=== PATIENT | male | born 1950 | race Caucasian/White ===

== ENCOUNTER 2017-07-22 17:24 | Inpatient (IN) ==
[2017-07-22 19:01] LABS: Basophils # 0.1 10*3/uL (0.0-0.2); Basophils % 1.1 % (0.0-0.8); Eosinophils # 0.4 10*3/uL (0.0-0.87); Eosinophils % 3.8 % (0.00-10.9); Hematocrit 47.2 VOL% (42.0-52.0); Hemoglobin 15.3 GM/DL (14.0-18.0); Immature Granulocytes % 0.3 %; Immature Granulocytes Absolute 0.03 #; Lymphocytes # 1.8 10*3/uL (1.4-4.0); Mean Corpuscular HGB Conc 32.4 GM/DL (32-36); Mean Corpuscular Hemoglobin 29 PG (27-34); Mean Corpuscular Volume 90.8 FL (87-102); Mean Platelet Volume 9.8 FL (9.6-12.0); Monocytes # 0.6 10*3/uL (0.11-0.8); Monocytes % 6.9 % (1.7-12.7); Neutrophils # 6.4 10*3/uL (1.4-7.4); Neutrophils % 68.9 % (38.7-73.9); Platelet Count 268 T/CUMM (130-400); Red Cell Distribution Width 14.7 % (9.3-17.3); White Blood Count 9.3 T/CUMM (4-12)
[2017-07-22 19:10] LABS: PT Patient Result 10.3 SECS
[2017-07-22 19:19] LABS: Bilirubin,Total 0.5 MG/DL (0.2-1.0); Calcium 8.8 MG/DL (8.5-10.1); Osmolality,Calculated 286.8 MOS/KG (273-304); Potassium 4.4 MMOL/L (3.5-5.1); Total Protein 6.9 G/DL (6.4-8.3)
[2017-07-22 19:20] LABS: Troponin I Only < 0.015 NG/ML (0.00-0.045)
[2017-07-22] MEDS ORDERED: ONDANSETRON 4 MG/2 ML VIAL IV PRN (20:53)
[2017-07-22] MEDS ORDERED: ALBUTEROL/IPRATROPIUM 3 ML NEB RESP TX PRN (20:56)
[2017-07-22] MEDS: PANTOPRAZOLE 40 MG VIAL IV SCH (23:49)
[2017-07-22] MEDS: SODIUM CHLORIDE 0.9% 1,000 ML IV SCH (23:49)
[2017-07-23] MEDS ORDERED: CETIRIZINE 10 MG TABLET PO PRN (05:39)
[2017-07-23 05:43] LABS: Basophils # 0.1 10*3/uL (0.0-0.2); Basophils % 1.2 % (0.0-0.8); Eosinophils # 0.4 10*3/uL (0.0-0.87); Eosinophils % 5.2 % (0.00-10.9); Hematocrit 41.6 VOL% (42.0-52.0); Hemoglobin 13.6 GM/DL (14.0-18.0); Immature Granulocytes % 0.4 %; Immature Granulocytes Absolute 0.03 #; Lymphocytes # 2.1 10*3/uL (1.4-4.0); Lymphocytes % 29.5 % (21.2-54.2); Mean Corpuscular HGB Conc 32.7 GM/DL (32-36); Mean Corpuscular Hemoglobin 30 PG (27-34); Mean Corpuscular Volume 90.8 FL (87-102); Monocytes # 0.6 10*3/uL (0.11-0.8); Monocytes % 8.2 % (1.7-12.7); Neutrophils # 3.9 10*3/uL (1.4-7.4); Neutrophils % 55.5 % (38.7-73.9); Platelet Count 213 T/CUMM (130-400); Red Blood Count 4.58 MC/CUMM (3.8-5.5); Red Cell Distribution Width 14.8 % (9.3-17.3); White Blood Count 6.9 T/CUMM (4-12)
[2017-07-23 06:27] LABS: Calcium 8.7 MG/DL (8.5-10.1); Osmolality,Calculated 288.7 MOS/KG (273-304)
[2017-07-23] MEDS: COLCHICINE 0.6 MG TABLET PO SCH ×2 (08:48→13:41)
[2017-07-23] MEDS: THEOPHYLLINE ER (24 HR) 300 MG CAPSULE PO SCH ×2 (08:48→17:29)
[2017-07-23] MEDS: LOSARTAN 50 MG TABLET PO SCH ×2 (08:48→13:45)
[2017-07-23] MEDS: FEBUXOSTAT 80 MG TABLET PO SCH ×2 (08:49→13:44)
[2017-07-23] MEDS: MONTELUKAST 10 MG TABLET PO SCH ×2 (08:49→13:41)
[2017-07-23 08:50] LABS: Apearance,Urine Slightly Hazy (Clear); Bilirubin,Urine Negative (Negative); Blood, Urine Negative (Negative); Glucose,Urine (UA) Negative (Negative); Ketones,Urine 5 mg/dL (Negative); Mucus,Urine Many /LPF (Occasional); Nitrite,Urine Negative (Negative); Protein,Urine Negative; RBC,Urine <1 /HPF (0-4); Squamous Epithelial Cell,Urine Occasional /HPF (0-10); Urine Color Yellow (Yellow); Urine Specific Gravity 1.017 (1.001-1.035); Urine Urobilinogen < 2.0 EU/DL (0.2-1.0); WBC,Urine 3 /HPF (0-6)
[2017-07-23] MEDS ORDERED: CYANOCOBALAMIN 1000 MCG/1 ML VIAL IM SCH (09:00)
[2017-07-23] MEDS ORDERED: LIDOCAINE 2% 5 ML VIAL ONE (09:15)
[2017-07-23] MEDS ORDERED: PROPOFOL 200 MG/20 ML VIAL IV ONE (09:15)
[2017-07-23] MEDS: PANTOPRAZOLE 40 MG VIAL IV SCH ×2 (09:30→20:26)
[2017-07-23] MEDS: SODIUM CHLORIDE 0.9% 1,000 ML IV SCH (13:38)
[2017-07-23] MEDS ORDERED: SIMVASTATIN 40 MG TABLET PO SCH (21:00)
[2017-07-23] MEDS ORDERED: ALLOPURINOL 100 MG TABLET PO SCH (21:00)
[2017-07-23] MEDS ORDERED: CHOLECALCIFEROL 1,000 UNIT TABLET PO SCH (21:00)
[2017-07-23] MEDS ORDERED: ZALEPLON 5 MG CAPSULE PO SCH (21:00)
[2017-07-24] MEDS: SODIUM CHLORIDE 0.9% 1,000 ML IV SCH (06:43)
[2017-07-24] MEDS: MONTELUKAST 10 MG TABLET PO SCH (08:27)
[2017-07-24] MEDS: THEOPHYLLINE ER (24 HR) 300 MG CAPSULE PO SCH (08:27)
[2017-07-24] MEDS: FEBUXOSTAT 80 MG TABLET PO SCH (08:27)
[2017-07-24] MEDS: LOSARTAN 50 MG TABLET PO SCH (08:27)
[2017-07-24] MEDS: COLCHICINE 0.6 MG TABLET PO SCH (08:27)
[2017-07-24] MEDS: PANTOPRAZOLE 40 MG VIAL IV SCH (08:28)
[2017-07-24 09:36] VITALS: BP 114/68
== END 2017-07-24 10:54 | disposition home or self-care (01) | DRG 382 ==
LOC: N.ED 17:24 → N.EDINP 20:53 → N.5E 21:36
PROVIDERS: ADMIT Internal Medicine Geriatric Medicine; ATTEND Internal Medicine Geriatric Medicine

== ENCOUNTER 2020-02-25 14:56 | Inpatient (IN) ==
[2020-02-25] MEDS ORDERED: ALBUTEROL/IPRATROPIUM 3 ML NEB RESP TX STA (15:17)
[2020-02-25] MEDS ORDERED: SODIUM CHLORIDE 0.9% 500 ML IV STA (15:17)
[2020-02-25 15:43] LABS: Basophils # 0.1 10*3/uL (0.0-0.2); Basophils % 0.8 % (0.0-0.8); Eosinophils # 0.5 10*3/uL (0.0-0.87); Eosinophils % 4.7 % (0.00-10.9); Hematocrit 46.3 VOL% (42.0-52.0); Hemoglobin 15.1 GM/DL (14.0-18.0); Immature Granulocytes Absolute 0.11 #; Lymphocytes # 1.6 10*3/uL (1.4-4.0); Lymphocytes % 14.7 % (21.2-54.2); Mean Corpuscular HGB Conc 32.6 GM/DL (32-36); Mean Corpuscular Volume 84.2 FL (87-102); Monocytes % 6.1 % (1.7-12.7); Neutrophils % 72.7 % (38.7-73.9); Platelet Count 221 T/CUMM (130-400); Red Cell Distribution Width 14.6 % (9.3-17.3); White Blood Count 10.9 T/CUMM (4-12)
[2020-02-25 16:01] LABS: INR 1.1; PT Patient Result 12.2 SECS (9.8-11.9)
[2020-02-25 16:14] LABS: Albumin 2.9 G/DL (3.4-5.0); Bilirubin,Total 1.4 MG/DL (0.2-1.0); Calcium 8.8 MG/DL (8.5-10.1)
[2020-02-25] MEDS ORDERED: ZOLPIDEM 5 MG TABLET PO PRN (21:15)
[2020-02-25] MEDS ORDERED: ONDANSETRON 4 MG/2 ML VIAL IV PRN (21:15)
[2020-02-25] MEDS ORDERED: ACETAMINOPHEN 325 MG TABLET PO PRN (21:15)
[2020-02-25] MEDS ORDERED: DOCUSATE SODIUM 100 MG CAPSULE PO PRN (21:15)
[2020-02-25] MEDS ORDERED: ASPIRIN EC 81 MG TABLET PO SCH (21:30)
[2020-02-25] MEDS ORDERED: ALBUTEROL/IPRATROPIUM 3 ML NEB RESP TX PRN (23:29)
[2020-02-26] MEDS ORDERED: HEPARIN DRIP 25,000 UNITS/500 ML PREMIX IV SCH
[2020-02-26] MEDS: PANTOPRAZOLE 40 MG TABLET PO SCH ×3 (00:27→20:04)
[2020-02-26] MEDS: predniSONE 10 MG TABLET PO SCH ×3 (00:28→17:05)
[2020-02-26] MEDS: BUDESONIDE/FORMOTEROL 160-4.5 INHALER 6 GM INH SCH ×3 (00:29→20:09)
[2020-02-26] MEDS: ALBUTEROL 2.5 MG/3 ML NEB RESP TX SCH ×4 (00:59→19:31)
[2020-02-26] MEDS: SODIUM CHLORIDE 0.9% 1,000 ML IV SCH ×2 (01:00→18:29)
[2020-02-26 06:09] LABS: Basophils # 0.1 10*3/uL (0.0-0.2); Basophils % 0.6 % (0.0-0.8); Eosinophils # 0.2 10*3/uL (0.0-0.87); Eosinophils % 2.1 % (0.00-10.9); Hematocrit 43.6 VOL% (42.0-52.0); Hemoglobin 13.8 GM/DL (14.0-18.0); Immature Granulocytes % 0.8 %; Immature Granulocytes Absolute 0.09 #; Lymphocytes % 9.2 % (21.2-54.2); Mean Corpuscular HGB Conc 31.7 GM/DL (32-36); Mean Corpuscular Volume 86.2 FL (87-102); Mean Platelet Volume 10.5 FL (9.6-12.0); Monocytes % 4.3 % (1.7-12.7); Platelet Count 196 T/CUMM (130-400); Red Blood Count 5.06 MC/CUMM (3.8-5.5); Red Cell Distribution Width 14.9 % (9.3-17.3); White Blood Count 10.6 T/CUMM (4-12)
[2020-02-26 06:20] LABS: Calcium 8.8 MG/DL (8.5-10.1); Osmolality,Calculated 276.7 MOS/KG (273-304)
[2020-02-26] MEDS ORDERED: ROSUVASTATIN 20 MG TABLET PO SCH (09:00)
[2020-02-26] MEDS ORDERED: atenoloL 25 MG TABLET PO SCH (09:00)
[2020-02-26] MEDS ORDERED: allopurinoL 100 MG TABLET PO SCH (09:00)
[2020-02-26] MEDS ORDERED: CETIRIZINE 10 MG TABLET PO SCH (09:00)
[2020-02-26] MEDS ORDERED: ALBUTEROL 0.4 MG/ML 30 ML/BOTTLE PO SCH (09:00)
[2020-02-26] MEDS: THEOPHYLLINE ER 300 MG TABLET PO SCH ×2 (09:50→17:15)
[2020-02-26] MEDS: CHOLECALCIFEROL 1,000 UNIT TABLET PO SCH ×2 (09:50→20:04)
[2020-02-26] MEDS ORDERED: BISACODYL 5 MG TABLET PO PRN (10:15)
[2020-02-26 10:17] VITALS: BP 115/72
[2020-02-26 12:09] LABS: INR 1.2; PT Patient Result 12.5 SECS (9.8-11.9)
[2020-02-26 12:12] LABS: Partial Thromboplastin Time 168.5 SECS (23.9-33.8)
[2020-02-26] MEDS ORDERED: methylPREDNISolone SOD SUC 125 MG/2 ML VIAL IM ONE (12:34)
[2020-02-26] MEDS ORDERED: methylPREDNISolone SOD SUC 125 MG/2 ML VIAL IV ONE (12:34)
[2020-02-26] MEDS ORDERED: POTASSIUM CHLORIDE 20 MEQ TABLET PO ONE (19:13)
[2020-02-26 19:34] LABS: Allen Test Positive
[2020-02-26 19:35] LABS: ABG Base Excess -2.7 MMOL/L (-2.5-2.5); ABG HCO3 22.1 MMOL/L (20-26); ABG Oxygen Saturation 95.1 % (95-100); ABG PCO2 27.2 MM HG (35-48); ABG PH 7.467 (7.35-7.45); ABG PO2 73.5 MM HG (80-95); ABG TCO2 17.1 MMOL/L (23-27)
[2020-02-28] MEDS ORDERED: CYANOCOBALAMIN 1000 MCG/1 ML VIAL IM SCH (09:00)
== END 2020-02-26 21:02 | disposition hospice, home (50) | DRG 175 ==
LOC: EDBD → EDUNIT# → N.ED 14:56 → SUATTDRO 21:01 → N.EDINP 21:01 → N.ICU 02-26 09:58
PROVIDERS: ADMIT Internal Medicine; ATTEND Internal Medicine

== ENCOUNTER 2020-03-04 02:23 | Inpatient (IN) ==
[2020-03-04 02:42] LABS: Basophils # 0.1 10*3/uL (0.0-0.2); Basophils % 0.4 % (0.0-0.8); Eosinophils % 0.1 % (0.00-10.9); Hematocrit 40.1 VOL% (42.0-52.0); Hemoglobin 12.5 GM/DL (14.0-18.0); Immature Granulocytes % 5.1 %; Immature Granulocytes Absolute 0.96 #; Lymphocytes # 0.9 10*3/uL (1.4-4.0); Lymphocytes % 4.8 % (21.2-54.2); Mean Corpuscular HGB Conc 31.2 GM/DL (32-36); Mean Corpuscular Volume 86.8 FL (87-102); Mean Platelet Volume 9.6 FL (9.6-12.0); Monocytes % 5.7 % (1.7-12.7); NRBC # 0.05 10*3/uL; Neutrophils % 83.9 % (38.7-73.9); Platelet Count 265 T/CUMM (130-400); Red Blood Count 4.62 MC/CUMM (3.8-5.5); Red Cell Distribution Width 15.5 % (9.3-17.3); White Blood Count 18.7 T/CUMM (4-12)
[2020-03-04 02:52] LABS: INR 1.1; PT Patient Result 11.4 SECS (9.8-11.9); Partial Thromboplastin Time 25.6 SECS (23.9-33.8)
[2020-03-04] MEDS ORDERED: ONDANSETRON 4 MG/2 ML VIAL IV ONE ×2 (02:53→04:30)
[2020-03-04] MEDS ORDERED: PANTOPRAZOLE INJ 80 MG in SODIUM CHLORIDE 0.9% 100 ML IV ONE (02:53)
[2020-03-04] MEDS ORDERED: SODIUM CHLORIDE 0.9% 500 ML IV STA (02:53)
[2020-03-04] MEDS ORDERED: PANTOPRAZOLE 40 MG VIAL IV ONE ×2 (02:59→03:00)
[2020-03-04 03:00] LABS: Albumin 2.9 G/DL (3.4-5.0); Bilirubin,Total 3.3 MG/DL (0.2-1.0); Calcium 8.9 MG/DL (8.5-10.1); Osmolality,Calculated 280.5 MOS/KG (273-304); Total Protein 6.5 G/DL (6.4-8.3)
[2020-03-04 03:08] LABS: ABG Base Excess 0.3 MMOL/L (-2.5-2.5); ABG HCO3 23.4 MMOL/L (20-26); ABG Oxygen Saturation 99.3 % (95-100); ABG PCO2 32.6 MM HG (35-48); ABG PH 7.473 (7.35-7.45); ABG PO2 295.9 MM HG (80-95); ABG TCO2 24.4 MMOL/L (23-27); Allen Test Positive
[2020-03-04 03:18] LABS: Lymphocytes 8 % (20-55); Segmented Neutrophils 88 % (50-85); Total Cells Counted 100
[2020-03-04 03:20] LABS: Elliptocytes Few; Platelet Estimate Normal; Polychromasia Few
[2020-03-04] MEDS ORDERED: MORPHINE 4 MG/1 ML VIAL IV STA (04:30)
[2020-03-04] MEDS ORDERED: SODIUM CHLORIDE 0.9% 1,000 ML IV STA (04:47)
[2020-03-04] MEDS ORDERED: GLUCAGON 1 MG VIAL IM PRN (05:08)
[2020-03-04] MEDS ORDERED: PROMETHAZINE 25 MG/1 ML VIAL IM PRN (05:08)
[2020-03-04] MEDS ORDERED: NICOTINE 21 MG/24 HR PATCH TRANSDERM PRN (05:08)
[2020-03-04] MEDS ORDERED: MORPHINE 4 MG/1 ML VIAL IV PRN (05:08)
[2020-03-04] MEDS ORDERED: DEXTROSE 50% 25 GM/50 ML VIAL IV PRN (05:08)
[2020-03-04] MEDS ORDERED: hydrALAZINE 20 MG/1 ML VIAL IV PRN (05:08)
[2020-03-04] MEDS ORDERED: ONDANSETRON 4 MG/2 ML VIAL IV PRN (05:08)
[2020-03-04] MEDS ORDERED: metroNIDAZOLE INJ 500 MG in PREMIX 1 EACH IV STA (05:22)
[2020-03-04] MEDS ORDERED: LEVOFLOXACIN INJ 750 MG in PREMIX 1 EACH IV STA (05:22)
[2020-03-04] MEDS ORDERED: SODIUM CHLORIDE 0.9% 1,000 ML IV SCH (05:30)
[2020-03-04] MEDS ORDERED: metroNIDAZOLE 500 MG/100 ML PREMIX IV ONE (05:44)
[2020-03-04] MEDS: PANTOPRAZOLE INJ 200 MG in SODIUM CHLORIDE 0.9% 250 ML IV SCH (05:45)
[2020-03-04 06:00] LABS: Risk Ratio 2.34; VLDL CHOLESTEROL 36.6 MG/DL
[2020-03-04] MEDS ORDERED: METOPROLOL TARTRATE 5 MG/5 ML VIAL IV STA (06:07)
[2020-03-04] MEDS ORDERED: METOPROLOL TARTRATE 5 MG/5 ML VIAL IV ONE (06:08)
[2020-03-04 06:17] LABS: Basophils # 0.2 10*3/uL (0.0-0.2); Basophils % 0.5 % (0.0-0.8); Eosinophils % 0.1 % (0.00-10.9); Hematocrit 43.7 VOL% (42.0-52.0); Hemoglobin 13.4 GM/DL (14.0-18.0); Immature Granulocytes % 4.8 %; Immature Granulocytes Absolute 1.53 #; Lymphocytes # 1.6 10*3/uL (1.4-4.0); Lymphocytes % 5.1 % (21.2-54.2); Mean Corpuscular HGB Conc 30.7 GM/DL (32-36); Mean Corpuscular Volume 89.9 FL (87-102); Mean Platelet Volume 9.8 FL (9.6-12.0); Monocytes % 4.3 % (1.7-12.7); NRBC # 0.15 10*3/uL; Neutrophils % 85.2 % (38.7-73.9); Platelet Count 385 T/CUMM (130-400); Red Blood Count 4.86 MC/CUMM (3.8-5.5); Red Cell Distribution Width 15.5 % (9.3-17.3); White Blood Count 31.9 T/CUMM (4-12)
[2020-03-04 06:26] LABS: ABG Base Excess -2.1 MMOL/L (-2.5-2.5); ABG HCO3 22.2 MMOL/L (20-26); ABG Oxygen Saturation 78.8 % (95-100); ABG PCO2 42.4 MM HG (35-48); ABG PH 7.351 (7.35-7.45); ABG PO2 49.3 MM HG (80-95); ABG TCO2 20.8 MMOL/L (23-27)
[2020-03-04 06:36] LABS: Amorphous Crystals,Urine Occasional /HPF (Few); Apearance,Urine CLEAR (Clear); Bacteria,Urine Occasional /HPF (Few); Bilirubin,Urine Negative (Negative); Blood, Urine Small mg/dL (Negative); Glucose,Urine (UA) Negative (Negative); Hyaline Casts,Urine 3 /LPF (0-3); Ketones,Urine Negative (Negative); Mucus,Urine Many /LPF (Occasional); Nitrite,Urine Negative (Negative); Protein,Urine 100 MG/DL; RBC,Urine 1 /HPF (0-4); Squamous Epithelial Cell,Urine Occasional /HPF (0-10); Urine Color Yellow (Yellow); Urine Specific Gravity 1.018 (1.001-1.035); WBC,Urine 2 /HPF (0-6)
[2020-03-04 06:55] LABS: Hypochromasia 1+; Lymphocytes 5 % (20-55); Microcytosis 1+; Nucleated Red Blood Cells 1 (0-5); Segmented Neutrophils 92 % (50-85); Total Cells Counted 100
[2020-03-04 06:56] LABS: Ovalocytes Slight; Platelet Estimate Normal; Polychromasia Slight
[2020-03-04] MEDS: LACTATED RINGERS 1,000 ML IV SCH ×4 (09:42→22:27)
[2020-03-04] MEDS ORDERED: LACTATED RINGERS 1,000 ML IV ONE (12:27)
[2020-03-04 14:34] LABS: Calcium 7.9 MG/DL (8.5-10.1); Osmolality,Calculated 278.5 MOS/KG (273-304)
[2020-03-04] MEDS ORDERED: NOREPINEPHRINE 8 MG in SODIUM CHLORIDE 0.9% 242 ML IV PRN (15:00)
[2020-03-04 16:06] LABS: Alanine Aminotransferase 246 U/L (16-61); Albumin 1.9 G/DL (3.4-5.0); Alkaline Phosphatase 552 U/L (45-117); Aspartate Amino Transferase 523 U/L (0-37); Blood Urea Nitrogen 22 MG/DL (7-18); Calcium 7.8 MG/DL (8.5-10.1); Estimated Glom Filtration Rate 58 ML/MIN; Glucose 97 MG/DL (74-106); Osmolality,Calculated 283.3 MOS/KG (273-304); Total Protein 4.8 G/DL (6.4-8.3)
[2020-03-04] MEDS: metroNIDAZOLE INJ 500 MG in PREMIX 1 EACH IV SCH (17:50)
[2020-03-04] MEDS ORDERED: DOCUSATE SODIUM 100 MG CAPSULE PO PRN (18:01)
[2020-03-04] MEDS ORDERED: ZALEPLON 5 MG CAPSULE PO PRN (18:01)
[2020-03-04] MEDS ORDERED: LACTATED RINGERS 500 ML IV ONE (18:18)
[2020-03-04] MEDS: THEOPHYLLINE ER 300 MG TABLET PO SCH (19:09)
[2020-03-04] MEDS: CHOLECALCIFEROL 1,000 UNIT TABLET PO SCH (21:31)
[2020-03-04] MEDS: predniSONE 10 MG TABLET PO SCH (21:31)
[2020-03-04] MEDS: BUDESONIDE/FORMOTEROL 160-4.5 INHALER 6 GM INH SCH (21:31)
[2020-03-04] MEDS: APIXABAN 5 MG TABLET PO SCH (21:31)
[2020-03-04] MEDS: ALBUTEROL/IPRATROPIUM 3 ML NEB RESP TX SCH (21:32)
[2020-03-05] MEDS: metroNIDAZOLE INJ 500 MG in PREMIX 1 EACH IV SCH ×2 (04:33→17:08)
[2020-03-05 04:46] LABS: Basophils % 0.1 % (0.0-0.8); Eosinophils # 0.2 10*3/uL (0.0-0.87); Eosinophils % 1.1 % (0.00-10.9); Hematocrit 34.4 VOL% (42.0-52.0); Hemoglobin 10.4 GM/DL (14.0-18.0); Immature Granulocytes % 3.3 %; Immature Granulocytes Absolute 0.52 #; Lymphocytes # 0.9 10*3/uL (1.4-4.0); Lymphocytes % 5.8 % (21.2-54.2); Mean Corpuscular HGB Conc 30.2 GM/DL (32-36); Mean Corpuscular Volume 89.6 FL (87-102); Mean Platelet Volume 10.2 FL (9.6-12.0); Monocytes % 5.4 % (1.7-12.7); NRBC # 0.04 10*3/uL; Neutrophils % 84.3 % (38.7-73.9); Platelet Count 212 T/CUMM (130-400); Red Blood Count 3.84 MC/CUMM (3.8-5.5); Red Cell Distribution Width 15.6 % (9.3-17.3); White Blood Count 15.8 T/CUMM (4-12)
[2020-03-05 05:09] LABS: Albumin 2.3 G/DL (3.4-5.0); Bilirubin,Total 2.8 MG/DL (0.2-1.0); Calcium 8.4 MG/DL (8.5-10.1); Total Protein 4.7 G/DL (6.4-8.3)
[2020-03-05 05:28] LABS: Eosinophils 2 % (0-10); Lymphocytes 7 % (20-55); Segmented Neutrophils 86 % (50-85); Total Cells Counted 100
[2020-03-05 05:29] LABS: Anisocytosis 1+; Ovalocytes Few; Platelet Estimate Normal; Tear Drop Cells Few
[2020-03-05] MEDS ORDERED: LEVOFLOXACIN INJ 500 MG in PREMIX 1 EACH IV SCH (05:30)
[2020-03-05 05:47] LABS: Albumin 2.1 G/DL (3.4-5.0); Bilirubin,Direct 1.89 MG/DL (0.0-0.20); Bilirubin,Indirect 0.5 MG/DL (0.0-1.0); Bilirubin,Total 2.4 MG/DL (0.2-1.0); Total Protein 4.9 G/DL (6.4-8.3)
[2020-03-05] MEDS: ALBUTEROL/IPRATROPIUM 3 ML NEB RESP TX SCH ×4 (06:51→20:17)
[2020-03-05] MEDS: LACTATED RINGERS 1,000 ML IV SCH ×4 (07:15→20:41)
[2020-03-05] MEDS ORDERED: INDOMETHACIN SUPP 50 MG SUPP RECTAL ONE (07:31)
[2020-03-05] MEDS: APIXABAN 5 MG TABLET PO SCH ×2 (08:37→20:34)
[2020-03-05] MEDS: ursodioL 300 MG CAPSULE PO SCH ×2 (08:37→20:34)
[2020-03-05] MEDS: CHOLECALCIFEROL 1,000 UNIT TABLET PO SCH ×2 (08:37→20:34)
[2020-03-05] MEDS: THEOPHYLLINE ER 300 MG TABLET PO SCH ×2 (08:37→17:08)
[2020-03-05] MEDS: BUDESONIDE/FORMOTEROL 160-4.5 INHALER 6 GM INH SCH ×2 (08:37→20:36)
[2020-03-05] MEDS: ALBUTEROL 2 MG TABLET PO SCH (08:37)
[2020-03-05] MEDS ORDERED: METOPROLOL SUCCINATE XL 25 MG TABLET PO ONE (08:50)
[2020-03-05] MEDS ORDERED: AMIODARONE INJ 150 MG in DEXTROSE 5% 100 ML IV ONE (08:51)
[2020-03-05] MEDS ORDERED: AMIODARONE INJ 450 MG in DEXTROSE 5% 241 ML IV SCH (09:00)
[2020-03-05] MEDS: PANTOPRAZOLE INJ 200 MG in SODIUM CHLORIDE 0.9% 250 ML IV SCH (09:03)
[2020-03-05] MEDS ORDERED: METOPROLOL TARTRATE 5 MG/5 ML VIAL IV ONE (10:11)
[2020-03-05] MEDS ORDERED: SPIRONOLACTONE 25 MG TABLET PO ONE (10:59)
[2020-03-05 11:01] LABS: Troponin I < 0.015 NG/ML (0.00-0.045)
[2020-03-05] MEDS: predniSONE 10 MG TABLET PO SCH ×2 (12:30→20:34)
[2020-03-05] MEDS ORDERED: LEVOFLOXACIN 500 MG TABLET PO SCH (12:30)
[2020-03-05] MEDS: AMIODARONE INJ 450 MG in DEXTROSE 5% 241 ML IV SCH ×2 (15:30→21:57)
[2020-03-05] MEDS ORDERED: DOXYCYCLINE HYCLATE INJ 100 MG in SODIUM CHLORIDE 0.9% 100 ML IV SCH (20:00)
[2020-03-05] MEDS: PANTOPRAZOLE 40 MG VIAL IV SCH (20:34)
[2020-03-06] MEDS: metroNIDAZOLE INJ 500 MG in PREMIX 1 EACH IV SCH (05:39)
[2020-03-06 06:30] LABS: Basophils % 0.2 % (0.0-0.8); Hematocrit 29.2 VOL% (42.0-52.0); Hemoglobin 9.4 GM/DL (14.0-18.0); Immature Granulocytes Absolute 0.61 #; Lymphocytes # 0.6 10*3/uL (1.4-4.0); Lymphocytes % 4.5 % (21.2-54.2); Mean Corpuscular HGB Conc 32.2 GM/DL (32-36); Mean Corpuscular Volume 85.4 FL (87-102); Mean Platelet Volume 10.5 FL (9.6-12.0); Monocytes % 3.8 % (1.7-12.7); NRBC # 0.03 10*3/uL; Neutrophils % 86.5 % (38.7-73.9); Platelet Count 195 T/CUMM (130-400); Red Blood Count 3.42 MC/CUMM (3.8-5.5); Red Cell Distribution Width 15.5 % (9.3-17.3); White Blood Count 12.1 T/CUMM (4-12)
[2020-03-06] MEDS: LACTATED RINGERS 1,000 ML IV SCH ×2 (06:38→17:00)
[2020-03-06 06:53] LABS: Bilirubin,Total 1.1 MG/DL (0.2-1.0); Calcium 8.4 MG/DL (8.5-10.1)
[2020-03-06 06:54] LABS: Albumin 1.9 G/DL (3.4-5.0); Osmolality,Calculated 279.7 MOS/KG (273-304); Total Protein 4.9 G/DL (6.4-8.3)
[2020-03-06 06:55] LABS: Anisocytosis 2+; Band Neutrophils 2 % (0-10); Basophilic Stippling Slight; Lymphocytes 8 % (20-55); Metamyelocytes 1 %; Platelet Estimate Normal; Poikilocytosis Slight; Segmented Neutrophils 83 % (50-85); Total Cells Counted 100
[2020-03-06 06:56] LABS: Albumin 1.9 G/DL (3.4-5.0); Bilirubin,Direct 0.41 MG/DL (0.0-0.20); Bilirubin,Indirect 1.5 MG/DL (0.0-1.0); Bilirubin,Total 1.9 MG/DL (0.2-1.0); Total Protein 4.9 G/DL (6.4-8.3)
[2020-03-06] MEDS: ALBUTEROL/IPRATROPIUM 3 ML NEB RESP TX SCH ×4 (07:30→20:19)
[2020-03-06] MEDS: CHOLECALCIFEROL 1,000 UNIT TABLET PO SCH ×2 (08:04→20:40)
[2020-03-06] MEDS: THEOPHYLLINE ER 300 MG TABLET PO SCH (08:04)
[2020-03-06] MEDS: ursodioL 300 MG CAPSULE PO SCH ×2 (08:05→20:41)
[2020-03-06] MEDS: APIXABAN 5 MG TABLET PO SCH ×2 (08:05→20:40)
[2020-03-06] MEDS: predniSONE 10 MG TABLET PO SCH ×2 (08:05→20:41)
[2020-03-06] MEDS: BUDESONIDE/FORMOTEROL 160-4.5 INHALER 6 GM INH SCH ×2 (08:06→20:41)
[2020-03-06] MEDS: PANTOPRAZOLE 40 MG VIAL IV SCH ×2 (08:07→20:40)
[2020-03-06] MEDS: ALBUTEROL 2 MG TABLET PO SCH (08:10)
[2020-03-06] MEDS ORDERED: LEVOFLOXACIN 750 MG TABLET PO SCH (09:00)
[2020-03-06] MEDS ORDERED: METOPROLOL SUCCINATE XL 25 MG TABLET PO SCH (09:00)
[2020-03-06] MEDS: AMIODARONE INJ 450 MG in DEXTROSE 5% 241 ML IV SCH ×2 (13:12→23:05)
[2020-03-06] MEDS: ASCORBIC ACID 500 MG TABLET PO SCH (20:40)
[2020-03-06] MEDS: AMIODARONE 200 MG TABLET PO SCH (20:40)
[2020-03-07] MEDS: LACTATED RINGERS 1,000 ML IV SCH ×2 (03:04→14:49)
[2020-03-07 06:13] LABS: Basophils % 0.2 % (0.0-0.8); Hematocrit 32.5 VOL% (42.0-52.0); Hemoglobin 9.8 GM/DL (14.0-18.0); Immature Granulocytes % 2.8 %; Immature Granulocytes Absolute 0.39 #; Lymphocytes # 0.9 10*3/uL (1.4-4.0); Lymphocytes % 6.1 % (21.2-54.2); Mean Corpuscular HGB Conc 30.2 GM/DL (32-36); Mean Corpuscular Volume 88.8 FL (87-102); Mean Platelet Volume 10.2 FL (9.6-12.0); Monocytes % 4.1 % (1.7-12.7); NRBC # 0.02 10*3/uL; Neutrophils % 86.8 % (38.7-73.9); Platelet Count 226 T/CUMM (130-400); Red Blood Count 3.66 MC/CUMM (3.8-5.5); Red Cell Distribution Width 15.6 % (9.3-17.3)
[2020-03-07 06:31] LABS: Albumin 2.1 G/DL (3.4-5.0); Bilirubin,Total 0.7 MG/DL (0.2-1.0); Calcium 8.6 MG/DL (8.5-10.1); Osmolality,Calculated 279.3 MOS/KG (273-304); Total Protein 5.2 G/DL (6.4-8.3)
[2020-03-07] MEDS: ALBUTEROL/IPRATROPIUM 3 ML NEB RESP TX SCH ×4 (08:06→19:48)
[2020-03-07] MEDS: THEOPHYLLINE ER 300 MG TABLET PO SCH ×3 (09:06→17:08)
[2020-03-07] MEDS: ASCORBIC ACID 500 MG TABLET PO SCH ×2 (09:07→21:49)
[2020-03-07] MEDS: AMIODARONE 200 MG TABLET PO SCH ×2 (09:07→21:49)
[2020-03-07] MEDS: ALBUTEROL 2 MG TABLET PO SCH (09:07)
[2020-03-07] MEDS: CHOLECALCIFEROL 1,000 UNIT TABLET PO SCH ×2 (09:07→21:49)
[2020-03-07] MEDS: METOPROLOL SUCCINATE XL 25 MG TABLET PO SCH ×2 (09:08→21:49)
[2020-03-07] MEDS: predniSONE 10 MG TABLET PO SCH ×2 (09:08→21:49)
[2020-03-07] MEDS: APIXABAN 5 MG TABLET PO SCH ×2 (09:08→21:49)
[2020-03-07] MEDS: ursodioL 300 MG CAPSULE PO SCH ×2 (09:08→21:49)
[2020-03-07] MEDS: PANTOPRAZOLE 40 MG VIAL IV SCH ×2 (09:08→21:47)
[2020-03-07] MEDS: BUDESONIDE/FORMOTEROL 160-4.5 INHALER 6 GM INH SCH ×2 (09:08→21:49)
[2020-03-07] MEDS: ERTAPENEM 1,000 MG in SODIUM CHLORIDE 0.9% 100 ML IV SCH (09:15)
[2020-03-07] MEDS: MORPHINE 4 MG/1 ML VIAL IV PRN (21:47)
[2020-03-08] MEDS: MORPHINE 4 MG/1 ML VIAL IV PRN (00:50)
[2020-03-08] MEDS: LACTATED RINGERS 1,000 ML IV SCH ×2 (00:59→14:30)
[2020-03-08 06:21] LABS: Basophils % 0.2 % (0.0-0.8); Eosinophils % 0.1 % (0.00-10.9); Hematocrit 32.3 VOL% (42.0-52.0); Hemoglobin 10.4 GM/DL (14.0-18.0); Immature Granulocytes % 3.8 %; Immature Granulocytes Absolute 0.47 #; Lymphocytes # 0.7 10*3/uL (1.4-4.0); Lymphocytes % 5.9 % (21.2-54.2); Mean Corpuscular HGB Conc 32.2 GM/DL (32-36); Mean Corpuscular Volume 85.7 FL (87-102); Mean Platelet Volume 10.3 FL (9.6-12.0); Monocytes % 4.3 % (1.7-12.7); NRBC # 0.03 10*3/uL; Neutrophils % 85.7 % (38.7-73.9); Platelet Count 247 T/CUMM (130-400); Red Blood Count 3.77 MC/CUMM (3.8-5.5); White Blood Count 12.5 T/CUMM (4-12)
[2020-03-08 06:47] LABS: Calcium 8.7 MG/DL (8.5-10.1); Osmolality,Calculated 278.3 MOS/KG (273-304)
[2020-03-08] MEDS: ALBUTEROL/IPRATROPIUM 3 ML NEB RESP TX SCH ×4 (07:40→20:40)
[2020-03-08] MEDS: PANTOPRAZOLE 40 MG VIAL IV SCH ×2 (09:46→21:14)
[2020-03-08] MEDS: ASCORBIC ACID 500 MG TABLET PO SCH ×2 (09:47→21:13)
[2020-03-08] MEDS: predniSONE 10 MG TABLET PO SCH ×2 (09:47→21:13)
[2020-03-08] MEDS: ursodioL 300 MG CAPSULE PO SCH ×2 (09:47→21:13)
[2020-03-08] MEDS: ALBUTEROL 2 MG TABLET PO SCH (09:47)
[2020-03-08] MEDS: AMIODARONE 200 MG TABLET PO SCH ×2 (09:47→21:14)
[2020-03-08] MEDS: METOPROLOL SUCCINATE XL 25 MG TABLET PO SCH ×2 (09:47→21:13)
[2020-03-08] MEDS: CHOLECALCIFEROL 1,000 UNIT TABLET PO SCH ×2 (09:47→21:13)
[2020-03-08] MEDS: ERTAPENEM 1,000 MG in SODIUM CHLORIDE 0.9% 100 ML IV SCH (09:48)
[2020-03-08] MEDS: BUDESONIDE/FORMOTEROL 160-4.5 INHALER 6 GM INH SCH ×2 (09:48→21:20)
[2020-03-08] MEDS: APIXABAN 5 MG TABLET PO SCH ×2 (09:49→21:14)
[2020-03-08] MEDS: THEOPHYLLINE ER 300 MG TABLET PO SCH ×2 (09:52→16:46)
[2020-03-09] MEDS: LACTATED RINGERS 1,000 ML IV SCH ×4 (00:11→16:53)
[2020-03-09 05:46] LABS: Basophils % 0.2 % (0.0-0.8); Hematocrit 33.1 VOL% (42.0-52.0); Hemoglobin 10.4 GM/DL (14.0-18.0); Immature Granulocytes % 4.7 %; Immature Granulocytes Absolute 0.57 #; Lymphocytes # 0.8 10*3/uL (1.4-4.0); Lymphocytes % 6.4 % (21.2-54.2); Mean Corpuscular HGB Conc 31.4 GM/DL (32-36); Mean Corpuscular Volume 86.2 FL (87-102); Mean Platelet Volume 10.2 FL (9.6-12.0); Monocytes % 3.9 % (1.7-12.7); NRBC # 0.04 10*3/uL; Neutrophils % 84.8 % (38.7-73.9); Platelet Count 222 T/CUMM (130-400); Red Blood Count 3.84 MC/CUMM (3.8-5.5); Red Cell Distribution Width 16.3 % (9.3-17.3); White Blood Count 12.2 T/CUMM (4-12)
[2020-03-09 06:08] LABS: Hypochromasia 1+; Lymphocytes 6 % (20-55); Platelet Estimate Adequate; Segmented Neutrophils 88 % (50-85); Total Cells Counted 100
[2020-03-09 06:10] LABS: Albumin 2.4 G/DL (3.4-5.0); Bilirubin,Total 1.6 MG/DL (0.2-1.0); Calcium 8.7 MG/DL (8.5-10.1); Osmolality,Calculated 276.5 MOS/KG (273-304); Total Protein 5.5 G/DL (6.4-8.3)
[2020-03-09] MEDS: ALBUTEROL/IPRATROPIUM 3 ML NEB RESP TX SCH ×4 (07:18→19:16)
[2020-03-09] MEDS: PANTOPRAZOLE 40 MG VIAL IV SCH ×2 (08:40→21:17)
[2020-03-09] MEDS: ERTAPENEM 1,000 MG in SODIUM CHLORIDE 0.9% 100 ML IV SCH (08:40)
[2020-03-09] MEDS: BUDESONIDE/FORMOTEROL 160-4.5 INHALER 6 GM INH SCH ×2 (09:00→21:20)
[2020-03-09] MEDS ORDERED: LIDOCAINE 2% 5 ML VIAL ONE (09:00)
[2020-03-09] MEDS ORDERED: propofoL 200 MG/20 ML VIAL IV ONE (09:00)
[2020-03-09] MEDS: THEOPHYLLINE ER 300 MG TABLET PO SCH ×2 (12:57→16:56)
[2020-03-09] MEDS: AMIODARONE 200 MG TABLET PO SCH ×2 (13:30→21:17)
[2020-03-09] MEDS: ALBUTEROL 2 MG TABLET PO SCH (13:31)
[2020-03-09] MEDS: predniSONE 10 MG TABLET PO SCH ×2 (13:31→21:17)
[2020-03-09] MEDS: METOPROLOL SUCCINATE XL 25 MG TABLET PO SCH ×2 (13:31→21:16)
[2020-03-09] MEDS: ASCORBIC ACID 500 MG TABLET PO SCH ×2 (13:32→21:16)
[2020-03-09] MEDS: APIXABAN 5 MG TABLET PO SCH ×2 (13:32→21:17)
[2020-03-09] MEDS: ursodioL 300 MG CAPSULE PO SCH ×2 (13:32→21:17)
[2020-03-09] MEDS: CHOLECALCIFEROL 1,000 UNIT TABLET PO SCH ×2 (13:33→21:16)
[2020-03-10] MEDS: LACTATED RINGERS 1,000 ML IV SCH ×3 (04:25→16:36)
[2020-03-10 04:28] LABS: Basophils % 0.2 % (0.0-0.8); Hematocrit 34.5 VOL% (42.0-52.0); Hemoglobin 10.8 GM/DL (14.0-18.0); Immature Granulocytes Absolute 0.52 #; Lymphocytes # 0.7 10*3/uL (1.4-4.0); Lymphocytes % 5.7 % (21.2-54.2); Mean Corpuscular HGB Conc 31.3 GM/DL (32-36); Mean Corpuscular Volume 87.1 FL (87-102); Mean Platelet Volume 10.1 FL (9.6-12.0); Monocytes % 3.1 % (1.7-12.7); NRBC # 0.03 10*3/uL; Platelet Count 219 T/CUMM (130-400); Red Blood Count 3.96 MC/CUMM (3.8-5.5); Red Cell Distribution Width 17.2 % (9.3-17.3); White Blood Count 13.1 T/CUMM (4-12)
[2020-03-10 04:47] LABS: Calcium 8.3 MG/DL (8.5-10.1); Osmolality,Calculated 279.4 MOS/KG (273-304)
[2020-03-10 05:06] LABS: Band Neutrophils 1 % (0-10); Hypochromasia 1+; Lymphocytes 3 % (20-55); Macrocytosis Slight; Nucleated Red Blood Cells 1 (0-5); Platelet Estimate Adequate; Polychromasia Slight; Segmented Neutrophils 91 % (50-85); Total Cells Counted 100
[2020-03-10] MEDS: ALBUTEROL/IPRATROPIUM 3 ML NEB RESP TX SCH ×4 (07:30→19:50)
[2020-03-10] MEDS: ALBUTEROL 2 MG TABLET PO SCH (08:21)
[2020-03-10] MEDS: APIXABAN 5 MG TABLET PO SCH ×2 (08:21→21:34)
[2020-03-10] MEDS: predniSONE 10 MG TABLET PO SCH ×2 (08:21→21:34)
[2020-03-10] MEDS: THEOPHYLLINE ER 300 MG TABLET PO SCH ×2 (08:21→17:21)
[2020-03-10] MEDS: CHOLECALCIFEROL 1,000 UNIT TABLET PO SCH ×2 (08:21→21:36)
[2020-03-10 08:22] LABS: Albumin 2.4 G/DL (3.4-5.0); Bilirubin,Direct 0.35 MG/DL (0.0-0.20); Bilirubin,Indirect 0.4 MG/DL (0.0-1.0); Bilirubin,Total 0.7 MG/DL (0.2-1.0); Total Protein 5.2 G/DL (6.4-8.3)
[2020-03-10] MEDS: ASCORBIC ACID 500 MG TABLET PO SCH ×2 (08:22→21:35)
[2020-03-10] MEDS: PANTOPRAZOLE 40 MG VIAL IV SCH ×2 (08:22→21:40)
[2020-03-10] MEDS: AMIODARONE 200 MG TABLET PO SCH ×2 (08:22→21:34)
[2020-03-10] MEDS: ursodioL 300 MG CAPSULE PO SCH ×2 (08:22→21:36)
[2020-03-10] MEDS: ERTAPENEM 1,000 MG in SODIUM CHLORIDE 0.9% 100 ML IV SCH (08:25)
[2020-03-10] MEDS: METOPROLOL SUCCINATE XL 25 MG TABLET PO SCH ×2 (08:28→21:35)
[2020-03-10] MEDS: BUDESONIDE/FORMOTEROL 160-4.5 INHALER 6 GM INH SCH ×2 (08:28→21:41)
[2020-03-10] MEDS ORDERED: MICAFUNGIN 150 MG in SODIUM CHLORIDE 0.9% 100 ML IV SCH (13:45)
[2020-03-10] MEDS: MICAFUNGIN 50 MG, MICAFUNGIN 100 MG in SODIUM CHLORIDE 0.9% 100 ML IV SCH (14:04)
[2020-03-11] MEDS: LACTATED RINGERS 1,000 ML IV SCH ×4 (01:11→19:35)
[2020-03-11 05:21] LABS: Basophils % 0.2 % (0.0-0.8); Eosinophils % 0.1 % (0.00-10.9); Hematocrit 34.3 VOL% (42.0-52.0); Hemoglobin 10.7 GM/DL (14.0-18.0); Immature Granulocytes % 3.3 %; Immature Granulocytes Absolute 0.54 #; Lymphocytes # 0.7 10*3/uL (1.4-4.0); Lymphocytes % 3.9 % (21.2-54.2); Mean Corpuscular HGB Conc 31.2 GM/DL (32-36); Mean Corpuscular Volume 88.6 FL (87-102); Mean Platelet Volume 9.7 FL (9.6-12.0); Monocytes % 3.4 % (1.7-12.7); NRBC # 0.03 10*3/uL; Neutrophils % 89.1 % (38.7-73.9); Platelet Count 222 T/CUMM (130-400); Red Blood Count 3.87 MC/CUMM (3.8-5.5); Red Cell Distribution Width 17.2 % (9.3-17.3); White Blood Count 16.6 T/CUMM (4-12)
[2020-03-11 05:52] LABS: Albumin 2.4 G/DL (3.4-5.0); Bilirubin,Total 1.2 MG/DL (0.2-1.0); Calcium 8.3 MG/DL (8.5-10.1); Osmolality,Calculated 281.3 MOS/KG (273-304); Total Protein 5.2 G/DL (6.4-8.3)
[2020-03-11 06:33] LABS: Anisocytosis 1+; Lymphocytes 5 % (20-55); Segmented Neutrophils 93 % (50-85); Total Cells Counted 100
[2020-03-11 06:34] LABS: Platelet Estimate Normal
[2020-03-11] MEDS: ALBUTEROL/IPRATROPIUM 3 ML NEB RESP TX SCH ×4 (07:36→19:18)
[2020-03-11] MEDS: CHOLECALCIFEROL 1,000 UNIT TABLET PO SCH ×2 (08:31→21:04)
[2020-03-11] MEDS: THEOPHYLLINE ER 300 MG TABLET PO SCH ×2 (08:31→16:48)
[2020-03-11] MEDS: ALBUTEROL 2 MG TABLET PO SCH (08:31)
[2020-03-11] MEDS: METOPROLOL SUCCINATE XL 25 MG TABLET PO SCH ×2 (08:32→21:04)
[2020-03-11] MEDS: APIXABAN 5 MG TABLET PO SCH ×2 (08:32→21:06)
[2020-03-11] MEDS: ursodioL 300 MG CAPSULE PO SCH ×2 (08:32→21:05)
[2020-03-11] MEDS: predniSONE 10 MG TABLET PO SCH ×2 (08:32→21:04)
[2020-03-11] MEDS: BUDESONIDE/FORMOTEROL 160-4.5 INHALER 6 GM INH SCH ×2 (08:32→21:43)
[2020-03-11] MEDS: AMIODARONE 200 MG TABLET PO SCH ×2 (08:32→21:05)
[2020-03-11] MEDS: ASCORBIC ACID 500 MG TABLET PO SCH ×2 (08:32→21:06)
[2020-03-11] MEDS: PANTOPRAZOLE 40 MG VIAL IV SCH ×2 (08:33→21:07)
[2020-03-11] MEDS: ERTAPENEM 1,000 MG in SODIUM CHLORIDE 0.9% 100 ML IV SCH (09:45)
[2020-03-11] MEDS: MICAFUNGIN 50 MG, MICAFUNGIN 100 MG in SODIUM CHLORIDE 0.9% 100 ML IV SCH (14:11)
[2020-03-12] MEDS: LACTATED RINGERS 1,000 ML IV SCH ×2 (00:08→05:30)
[2020-03-12 06:06] LABS: Basophils % 0.2 % (0.0-0.8); Hematocrit 34.6 VOL% (42.0-52.0); Hemoglobin 10.8 GM/DL (14.0-18.0); Immature Granulocytes % 2.5 %; Immature Granulocytes Absolute 0.42 #; Lymphocytes # 0.9 10*3/uL (1.4-4.0); Mean Corpuscular HGB Conc 31.2 GM/DL (32-36); Mean Corpuscular Volume 89.9 FL (87-102); Mean Platelet Volume 9.7 FL (9.6-12.0); Monocytes % 2.9 % (1.7-12.7); NRBC # 0.02 10*3/uL; Neutrophils % 89.4 % (38.7-73.9); Platelet Count 248 T/CUMM (130-400); Red Blood Count 3.85 MC/CUMM (3.8-5.5); Red Cell Distribution Width 17.3 % (9.3-17.3); White Blood Count 17.1 T/CUMM (4-12)
[2020-03-12 06:23] LABS: Albumin 2.4 G/DL (3.4-5.0); Bilirubin,Total 0.8 MG/DL (0.2-1.0); Calcium 8.2 MG/DL (8.5-10.1); Osmolality,Calculated 279.4 MOS/KG (273-304); Total Protein 5.3 G/DL (6.4-8.3)
[2020-03-12] MEDS: ALBUTEROL/IPRATROPIUM 3 ML NEB RESP TX SCH ×4 (07:19→19:25)
[2020-03-12] MEDS: THEOPHYLLINE ER 300 MG TABLET PO SCH ×2 (09:09→17:01)
[2020-03-12] MEDS: predniSONE 10 MG TABLET PO SCH ×2 (09:09→21:28)
[2020-03-12] MEDS: ursodioL 300 MG CAPSULE PO SCH ×2 (09:09→21:27)
[2020-03-12] MEDS: METOPROLOL SUCCINATE XL 25 MG TABLET PO SCH ×2 (09:09→21:29)
[2020-03-12] MEDS: PANTOPRAZOLE 40 MG VIAL IV SCH ×2 (09:09→21:32)
[2020-03-12] MEDS: ASCORBIC ACID 500 MG TABLET PO SCH ×2 (09:10→21:28)
[2020-03-12] MEDS: ALBUTEROL 2 MG TABLET PO SCH (09:10)
[2020-03-12] MEDS: ERTAPENEM 1,000 MG in SODIUM CHLORIDE 0.9% 100 ML IV SCH (09:11)
[2020-03-12] MEDS: APIXABAN 5 MG TABLET PO SCH ×2 (09:13→21:30)
[2020-03-12] MEDS: CHOLECALCIFEROL 1,000 UNIT TABLET PO SCH ×2 (09:13→21:27)
[2020-03-12] MEDS: AMIODARONE 200 MG TABLET PO SCH ×2 (09:14→21:27)
[2020-03-12] MEDS: BUDESONIDE/FORMOTEROL 160-4.5 INHALER 6 GM INH SCH ×2 (10:27→21:30)
[2020-03-12] MEDS: MICAFUNGIN 50 MG, MICAFUNGIN 100 MG in SODIUM CHLORIDE 0.9% 100 ML IV SCH (14:11)
[2020-03-13 06:32] LABS: Basophils % 0.2 % (0.0-0.8); Eosinophils % 0.1 % (0.00-10.9); Hematocrit 39.6 VOL% (42.0-52.0); Hemoglobin 12.1 GM/DL (14.0-18.0); Immature Granulocytes % 1.9 %; Immature Granulocytes Absolute 0.32 #; Lymphocytes # 0.8 10*3/uL (1.4-4.0); Lymphocytes % 4.6 % (21.2-54.2); Mean Corpuscular HGB Conc 30.6 GM/DL (32-36); Mean Corpuscular Volume 89.4 FL (87-102); Mean Platelet Volume 9.6 FL (9.6-12.0); Monocytes % 2.5 % (1.7-12.7); NRBC # 0.04 10*3/uL; Neutrophils % 90.7 % (38.7-73.9); Platelet Count 277 T/CUMM (130-400); Red Blood Count 4.43 MC/CUMM (3.8-5.5); Red Cell Distribution Width 17.5 % (9.3-17.3)
[2020-03-13 06:52] LABS: Albumin 2.8 G/DL (3.4-5.0); Bilirubin,Total 0.9 MG/DL (0.2-1.0); Calcium 8.5 MG/DL (8.5-10.1); Osmolality,Calculated 283.5 MOS/KG (273-304); Total Protein 5.8 G/DL (6.4-8.3)
[2020-03-13] MEDS ORDERED: FUROSEMIDE 40 MG/4 ML VIAL IV ONE (07:15)
[2020-03-13 07:16] LABS: Hypochromasia Slight; Lymphocytes 6 % (20-55); Ovalocytes Slight; Platelet Estimate Adequate; Segmented Neutrophils 91 % (50-85); Total Cells Counted 100
[2020-03-13] MEDS: ALBUTEROL/IPRATROPIUM 3 ML NEB RESP TX SCH ×3 (07:21→15:20)
[2020-03-13] MEDS: ERTAPENEM 1,000 MG in SODIUM CHLORIDE 0.9% 100 ML IV SCH (09:53)
[2020-03-13] MEDS: PANTOPRAZOLE 40 MG VIAL IV SCH ×2 (09:53→20:59)
[2020-03-13] MEDS: CHOLECALCIFEROL 1,000 UNIT TABLET PO SCH ×2 (09:54→20:58)
[2020-03-13] MEDS: predniSONE 10 MG TABLET PO SCH ×2 (09:54→20:58)
[2020-03-13] MEDS: APIXABAN 5 MG TABLET PO SCH ×2 (09:54→20:58)
[2020-03-13] MEDS: ASCORBIC ACID 500 MG TABLET PO SCH ×2 (09:54→20:58)
[2020-03-13] MEDS: AMIODARONE 200 MG TABLET PO SCH ×2 (09:54→20:58)
[2020-03-13] MEDS: METOPROLOL SUCCINATE XL 25 MG TABLET PO SCH ×2 (09:55→21:02)
[2020-03-13] MEDS: ursodioL 300 MG CAPSULE PO SCH ×2 (09:55→20:58)
[2020-03-13] MEDS: THEOPHYLLINE ER 300 MG TABLET PO SCH ×2 (09:55→16:19)
[2020-03-13] MEDS: ALBUTEROL 2 MG TABLET PO SCH (10:00)
[2020-03-13] MEDS: BUDESONIDE/FORMOTEROL 160-4.5 INHALER 6 GM INH SCH ×2 (10:00→20:54)
[2020-03-13] MEDS: MICAFUNGIN 50 MG, MICAFUNGIN 100 MG in SODIUM CHLORIDE 0.9% 100 ML IV SCH (12:51)
[2020-03-14 05:18] LABS: Basophils % 0.1 % (0.0-0.8); Eosinophils % 0.1 % (0.00-10.9); Hematocrit 38.9 VOL% (42.0-52.0); Hemoglobin 12.3 GM/DL (14.0-18.0); Immature Granulocytes % 1.2 %; Immature Granulocytes Absolute 0.17 #; Lymphocytes # 0.9 10*3/uL (1.4-4.0); Lymphocytes % 6.2 % (21.2-54.2); Mean Corpuscular HGB Conc 31.6 GM/DL (32-36); Mean Corpuscular Volume 86.4 FL (87-102); Mean Platelet Volume 9.6 FL (9.6-12.0); Monocytes % 3.5 % (1.7-12.7); NRBC # 0.02 10*3/uL; Neutrophils % 88.9 % (38.7-73.9); Platelet Count 247 T/CUMM (130-400); Red Cell Distribution Width 17.6 % (9.3-17.3); White Blood Count 14.3 T/CUMM (4-12)
[2020-03-14 05:52] LABS: Calcium 9.2 MG/DL (8.5-10.1); Osmolality,Calculated 274.8 MOS/KG (273-304)
[2020-03-14 07:53] VITALS: BP 105/63
[2020-03-14] MEDS: ERTAPENEM 1,000 MG in SODIUM CHLORIDE 0.9% 100 ML IV SCH (10:07)
[2020-03-14] MEDS: PANTOPRAZOLE 40 MG VIAL IV SCH (10:07)
[2020-03-14] MEDS: THEOPHYLLINE ER 300 MG TABLET PO SCH (10:08)
[2020-03-14] MEDS: BUDESONIDE/FORMOTEROL 160-4.5 INHALER 6 GM INH SCH (10:08)
[2020-03-14] MEDS: APIXABAN 5 MG TABLET PO SCH (10:08)
[2020-03-14] MEDS: AMIODARONE 200 MG TABLET PO SCH (10:09)
[2020-03-14] MEDS: predniSONE 10 MG TABLET PO SCH (10:09)
[2020-03-14] MEDS: METOPROLOL SUCCINATE XL 25 MG TABLET PO SCH (10:09)
[2020-03-14] MEDS: CHOLECALCIFEROL 1,000 UNIT TABLET PO SCH (10:09)
[2020-03-14] MEDS: ursodioL 300 MG CAPSULE PO SCH (10:09)
[2020-03-14] MEDS: ASCORBIC ACID 500 MG TABLET PO SCH (10:09)
[2020-03-14] MEDS: ALBUTEROL 2 MG TABLET PO SCH (10:14)
[2020-03-14] MEDS: MICAFUNGIN 50 MG, MICAFUNGIN 100 MG in SODIUM CHLORIDE 0.9% 100 ML IV SCH (11:22)
[2020-03-15] MEDS ORDERED: AMIODARONE 200 MG TABLET PO SCH (09:00)
== END 2020-03-14 14:07 | disposition home health service (06) | DRG 871 ==
LOC: EDUNIT# → EDBD → N.ED 02:23 → SUATTDRO 05:08 → N.EDINP 05:08 → N.ICU 06:14 → N.TELEN 03-05 16:28
PROVIDERS: ADMIT Internal Medicine; ATTEND Internal Medicine

== ENCOUNTER 2020-03-19 19:22 | Inpatient (IN) ==
[2020-03-19 20:09] LABS: Basophils % 0.2 % (0.0-0.8); Eosinophils % 0.4 % (0.00-10.9); Hematocrit 39.6 VOL% (42.0-52.0); Hemoglobin 12.3 GM/DL (14.0-18.0); Immature Granulocytes % 0.8 %; Immature Granulocytes Absolute 0.08 #; Lymphocytes # 0.5 10*3/uL (1.4-4.0); Lymphocytes % 4.8 % (21.2-54.2); Mean Corpuscular HGB Conc 31.1 GM/DL (32-36); Mean Corpuscular Volume 90.2 FL (87-102); Mean Platelet Volume 9.6 FL (9.6-12.0); Monocytes % 4.9 % (1.7-12.7); Neutrophils % 88.9 % (38.7-73.9); Platelet Count 217 T/CUMM (130-400); Red Blood Count 4.39 MC/CUMM (3.8-5.5); Red Cell Distribution Width 17.9 % (9.3-17.3)
[2020-03-19 20:18] LABS: INR 1.1
[2020-03-19 20:36] LABS: Albumin 3.4 G/DL (3.4-5.0); Anisocytosis Slight; Bilirubin,Total 1.6 MG/DL (0.2-1.0); Calcium 9.2 MG/DL (8.5-10.1); Ferritin 219.5 ng/ml (26-388); Lymphocytes 5 % (20-55); Osmolality,Calculated 275.8 MOS/KG (273-304); Segmented Neutrophils 90 % (50-85); Total Cells Counted 100; Total Protein 6.1 G/DL (6.4-8.3)
[2020-03-19 20:37] LABS: Elliptocytes Few; Hypochromasia Slight; Platelet Estimate Adequate
[2020-03-19 20:43] LABS: Apearance,Urine Slightly Hazy (Clear); Bacteria,Urine Occasional /HPF (Few); Bilirubin,Urine Negative (Negative); Blood, Urine Negative (Negative); Glucose,Urine (UA) Negative (Negative); Ketones,Urine 5 mg/dL (Negative); Mucus,Urine Many /LPF (Occasional); Nitrite,Urine Negative (Negative); Protein,Urine 30 MG/DL; RBC,Urine 2 /HPF (0-4); Urine Color Yellow (Yellow); Urine Urobilinogen < 2.0 EU/DL (0.2-1.0); WBC,Urine 5 /HPF (0-6)
[2020-03-20] MEDS ORDERED: ACETAMINOPHEN 325 MG TABLET PO PRN (00:58)
[2020-03-20] MEDS ORDERED: ONDANSETRON 4 MG/2 ML VIAL IV PRN (00:58)
[2020-03-20 06:19] LABS: Bilirubin,Total 2.1 MG/DL (0.2-1.0); Calcium 8.6 MG/DL (8.5-10.1); Osmolality,Calculated 277.5 MOS/KG (273-304); Total Protein 5.7 G/DL (6.4-8.3)
[2020-03-20] MEDS ORDERED: ERTAPENEM 1,000 MG in SODIUM CHLORIDE 0.9% 100 ML IV SCH (09:00)
[2020-03-20] MEDS: MICAFUNGIN 100 MG, MICAFUNGIN 50 MG in SODIUM CHLORIDE 0.9% 100 ML IV SCH (10:42)
[2020-03-21] MEDS ORDERED: ALBUTEROL/IPRATROPIUM 3 ML NEB RESP TX PRN (01:37)
[2020-03-21 05:35] LABS: Basophils % 0.3 % (0.0-0.8); Eosinophils # 0.7 10*3/uL (0.0-0.87); Eosinophils % 7.5 % (0.00-10.9); Hematocrit 38.5 VOL% (42.0-52.0); Hemoglobin 12.2 GM/DL (14.0-18.0); Immature Granulocytes % 0.7 %; Immature Granulocytes Absolute 0.06 #; Lymphocytes # 0.5 10*3/uL (1.4-4.0); Lymphocytes % 5.2 % (21.2-54.2); Mean Corpuscular HGB Conc 31.7 GM/DL (32-36); Mean Corpuscular Volume 89.7 FL (87-102); Mean Platelet Volume 9.8 FL (9.6-12.0); Monocytes % 5.5 % (1.7-12.7); Neutrophils % 80.8 % (38.7-73.9); Platelet Count 176 T/CUMM (130-400); Red Blood Count 4.29 MC/CUMM (3.8-5.5); Red Cell Distribution Width 17.7 % (9.3-17.3); White Blood Count 8.7 T/CUMM (4-12)
[2020-03-21 05:59] LABS: Eosinophils 11 % (0-10); Hypochromasia 1+; Lymphocytes 4 % (20-55); Platelet Estimate Adequate; Segmented Neutrophils 81 % (50-85); Total Cells Counted 100
[2020-03-21 06:09] LABS: Bilirubin,Total 1.6 MG/DL (0.2-1.0); Calcium 8.9 MG/DL (8.5-10.1); Osmolality,Calculated 278.3 MOS/KG (273-304); Total Protein 5.9 G/DL (6.4-8.3)
[2020-03-21] MEDS: MICAFUNGIN 100 MG, MICAFUNGIN 50 MG in SODIUM CHLORIDE 0.9% 100 ML IV SCH (09:48)
[2020-03-21] MEDS: METOPROLOL SUCCINATE XL 25 MG TABLET PO SCH (09:48)
[2020-03-21] MEDS: allopurinoL 100 MG TABLET PO SCH (09:48)
[2020-03-21] MEDS: AMIODARONE 200 MG TABLET PO SCH ×2 (09:48→22:17)
[2020-03-21] MEDS: ursodioL 300 MG CAPSULE PO SCH ×2 (09:48→22:16)
[2020-03-21] MEDS: BUDESONIDE/FORMOTEROL 160-4.5 INHALER 6 GM INH SCH ×2 (09:48→22:17)
[2020-03-21] MEDS: APIXABAN 5 MG TABLET PO SCH ×2 (09:48→22:17)
[2020-03-21] MEDS: CETIRIZINE 10 MG TABLET PO SCH (09:49)
[2020-03-21] MEDS: ASCORBIC ACID 500 MG TABLET PO SCH ×2 (09:49→22:16)
[2020-03-21] MEDS: DOCUSATE SODIUM 100 MG CAPSULE PO PRN (09:49)
[2020-03-21] MEDS: CHOLECALCIFEROL 1,000 UNIT TABLET PO SCH ×2 (09:49→22:16)
[2020-03-21] MEDS: THEOPHYLLINE ER 300 MG TABLET PO SCH ×2 (09:49→17:20)
[2020-03-21] MEDS: MEMANTINE 5 MG TABLET PO SCH (22:17)
[2020-03-21] MEDS: QUEtiapine 25 MG TABLET PO SCH (22:17)
[2020-03-22 06:31] LABS: Basophils % 0.3 % (0.0-0.8); Eosinophils # 0.6 10*3/uL (0.0-0.87); Eosinophils % 8.7 % (0.00-10.9); Hematocrit 36.2 VOL% (42.0-52.0); Hemoglobin 11.2 GM/DL (14.0-18.0); Immature Granulocytes % 0.5 %; Immature Granulocytes Absolute 0.04 #; Lymphocytes # 0.6 10*3/uL (1.4-4.0); Lymphocytes % 8.1 % (21.2-54.2); Mean Corpuscular HGB Conc 30.9 GM/DL (32-36); Mean Corpuscular Volume 89.8 FL (87-102); Mean Platelet Volume 9.4 FL (9.6-12.0); Monocytes % 6.2 % (1.7-12.7); Neutrophils % 76.2 % (38.7-73.9); Platelet Count 188 T/CUMM (130-400); Red Blood Count 4.03 MC/CUMM (3.8-5.5); Red Cell Distribution Width 17.4 % (9.3-17.3); White Blood Count 7.4 T/CUMM (4-12)
[2020-03-22 07:00] LABS: Calcium 8.4 MG/DL (8.5-10.1); Osmolality,Calculated 283.1 MOS/KG (273-304)
[2020-03-22] MEDS: APIXABAN 5 MG TABLET PO SCH ×2 (09:30→21:18)
[2020-03-22] MEDS: CHOLECALCIFEROL 1,000 UNIT TABLET PO SCH ×2 (09:30→21:19)
[2020-03-22] MEDS: ASCORBIC ACID 500 MG TABLET PO SCH ×2 (09:30→21:18)
[2020-03-22] MEDS: MEMANTINE 5 MG TABLET PO SCH ×2 (09:30→21:19)
[2020-03-22] MEDS: DOCUSATE SODIUM 100 MG CAPSULE PO PRN (09:31)
[2020-03-22] MEDS: BUDESONIDE/FORMOTEROL 160-4.5 INHALER 6 GM INH SCH ×2 (09:31→21:18)
[2020-03-22] MEDS: CETIRIZINE 10 MG TABLET PO SCH (09:31)
[2020-03-22] MEDS: allopurinoL 100 MG TABLET PO SCH (09:31)
[2020-03-22] MEDS: THEOPHYLLINE ER 300 MG TABLET PO SCH ×2 (09:31→17:23)
[2020-03-22] MEDS: METOPROLOL SUCCINATE XL 25 MG TABLET PO SCH (09:31)
[2020-03-22] MEDS: AMIODARONE 200 MG TABLET PO SCH ×2 (09:31→21:19)
[2020-03-22] MEDS: ursodioL 300 MG CAPSULE PO SCH ×2 (09:31→21:18)
[2020-03-22] MEDS: MICAFUNGIN 100 MG, MICAFUNGIN 50 MG in SODIUM CHLORIDE 0.9% 100 ML IV SCH (10:12)
[2020-03-22] MEDS ORDERED: POTASSIUM CHLORIDE 20 MEQ TABLET PO ONE (11:27)
[2020-03-22] MEDS ORDERED: traZODone 50 MG TABLET PO PRN (15:17)
[2020-03-22] MEDS: QUEtiapine 25 MG TABLET PO SCH (21:19)
[2020-03-23 06:18] LABS: Basophils % 0.5 % (0.0-0.8); Eosinophils # 0.7 10*3/uL (0.0-0.87); Eosinophils % 8.9 % (0.00-10.9); Hematocrit 36.9 VOL% (42.0-52.0); Hemoglobin 11.8 GM/DL (14.0-18.0); Immature Granulocytes % 0.7 %; Immature Granulocytes Absolute 0.05 #; Lymphocytes # 0.8 10*3/uL (1.4-4.0); Lymphocytes % 10.7 % (21.2-54.2); Mean Corpuscular Volume 88.7 FL (87-102); Mean Platelet Volume 9.7 FL (9.6-12.0); Monocytes % 6.1 % (1.7-12.7); Neutrophils % 73.1 % (38.7-73.9); Platelet Count 191 T/CUMM (130-400); Red Blood Count 4.16 MC/CUMM (3.8-5.5); Red Cell Distribution Width 17.5 % (9.3-17.3); White Blood Count 7.6 T/CUMM (4-12)
[2020-03-23 06:35] LABS: Calcium 8.4 MG/DL (8.5-10.1); Osmolality,Calculated 277.5 MOS/KG (273-304)
[2020-03-23] MEDS: THEOPHYLLINE ER 300 MG TABLET PO SCH ×2 (07:56→16:01)
[2020-03-23] MEDS: ursodioL 300 MG CAPSULE PO SCH ×2 (09:01→21:04)
[2020-03-23] MEDS: METOPROLOL SUCCINATE XL 25 MG TABLET PO SCH (09:01)
[2020-03-23] MEDS: APIXABAN 5 MG TABLET PO SCH ×2 (09:01→21:04)
[2020-03-23] MEDS: DOCUSATE SODIUM 100 MG CAPSULE PO PRN (09:01)
[2020-03-23] MEDS: ASCORBIC ACID 500 MG TABLET PO SCH ×2 (09:01→21:05)
[2020-03-23] MEDS: CHOLECALCIFEROL 1,000 UNIT TABLET PO SCH ×2 (09:02→21:05)
[2020-03-23] MEDS: MICAFUNGIN 100 MG, MICAFUNGIN 50 MG in SODIUM CHLORIDE 0.9% 100 ML IV SCH (09:02)
[2020-03-23] MEDS: CETIRIZINE 10 MG TABLET PO SCH (09:02)
[2020-03-23] MEDS: AMIODARONE 200 MG TABLET PO SCH ×2 (09:02→21:05)
[2020-03-23] MEDS: allopurinoL 100 MG TABLET PO SCH (09:02)
[2020-03-23] MEDS: MEMANTINE 5 MG TABLET PO SCH ×2 (09:02→21:04)
[2020-03-23] MEDS: BUDESONIDE/FORMOTEROL 160-4.5 INHALER 6 GM INH SCH ×2 (09:04→21:05)
[2020-03-23] MEDS: QUEtiapine 25 MG TABLET PO SCH (21:05)
[2020-03-24 06:07] LABS: Basophils % 0.4 % (0.0-0.8); Eosinophils # 0.7 10*3/uL (0.0-0.87); Hematocrit 39.1 VOL% (42.0-52.0); Hemoglobin 12.4 GM/DL (14.0-18.0); Immature Granulocytes % 0.5 %; Immature Granulocytes Absolute 0.05 #; Lymphocytes # 0.9 10*3/uL (1.4-4.0); Lymphocytes % 9.6 % (21.2-54.2); Mean Corpuscular HGB Conc 31.7 GM/DL (32-36); Mean Corpuscular Volume 87.3 FL (87-102); Mean Platelet Volume 9.4 FL (9.6-12.0); Monocytes % 6.3 % (1.7-12.7); Neutrophils % 76.2 % (38.7-73.9); Platelet Count 233 T/CUMM (130-400); Red Blood Count 4.48 MC/CUMM (3.8-5.5); White Blood Count 9.7 T/CUMM (4-12)
[2020-03-24 07:51] VITALS: BP 118/77
[2020-03-24 07:57] LABS: Calcium 9.1 MG/DL (8.5-10.1); Osmolality,Calculated 275.7 MOS/KG (273-304)
[2020-03-24] MEDS: CETIRIZINE 10 MG TABLET PO SCH (08:24)
[2020-03-24] MEDS: CHOLECALCIFEROL 1,000 UNIT TABLET PO SCH (08:24)
[2020-03-24] MEDS: ASCORBIC ACID 500 MG TABLET PO SCH (08:24)
[2020-03-24] MEDS: ursodioL 300 MG CAPSULE PO SCH (08:24)
[2020-03-24] MEDS: METOPROLOL SUCCINATE XL 25 MG TABLET PO SCH (08:24)
[2020-03-24] MEDS: THEOPHYLLINE ER 300 MG TABLET PO SCH (08:25)
[2020-03-24] MEDS: MEMANTINE 5 MG TABLET PO SCH (08:25)
[2020-03-24] MEDS: AMIODARONE 200 MG TABLET PO SCH (08:25)
[2020-03-24] MEDS: allopurinoL 100 MG TABLET PO SCH (08:25)
[2020-03-24] MEDS: APIXABAN 5 MG TABLET PO SCH (08:25)
[2020-03-24] MEDS: BUDESONIDE/FORMOTEROL 160-4.5 INHALER 6 GM INH SCH (08:28)
== END 2020-03-24 10:15 | DRG 884 ==
LOC: EDUNIT# → EDBD → N.EDINP 19:22 → N.ED 19:22 → N.3E 22:48
PROVIDERS: ADMIT Internal Medicine; ATTEND Internal Medicine

== ENCOUNTER 2020-04-06 09:09 | Inpatient (IN) ==
[2020-04-06] MEDS ORDERED: PROMETHAZINE 25 MG/1 ML VIAL ONE (09:51)
[2020-04-06] MEDS ORDERED: PROMETHAZINE 25 MG/1 ML VIAL IM STA (10:00)
[2020-04-06] MEDS: DEXTROSE 5% NACL 0.45% 1,000 ML IV SCH ×2 (11:00→21:57)
[2020-04-06] MEDS ORDERED: hydrALAZINE 20 MG/1 ML VIAL IV PRN (11:05)
[2020-04-06] MEDS ORDERED: PROMETHAZINE 25 MG/1 ML VIAL IM PRN (11:05)
[2020-04-06] MEDS ORDERED: ACETAMINOPHEN 325 MG TABLET PO PRN (11:05)
[2020-04-06] MEDS ORDERED: DOCUSATE SODIUM 100 MG CAPSULE PO PRN (11:05)
[2020-04-06] MEDS ORDERED: NITROGLYCERIN SL 0.4 MG TABLET SL PRN (14:35)
[2020-04-06] MEDS: ASPIRIN EC 81 MG TABLET PO SCH (14:52)
[2020-04-06 16:13] LABS: Troponin I < 0.015 NG/ML (0.00-0.045)
[2020-04-06 17:57] LABS: Troponin I < 0.015 NG/ML (0.00-0.045)
[2020-04-06] MEDS: THEOPHYLLINE ER 300 MG TABLET PO SCH (17:57)
[2020-04-06] MEDS: ursodioL 300 MG CAPSULE PO SCH (21:56)
[2020-04-06] MEDS: AMIODARONE 200 MG TABLET PO SCH (21:56)
[2020-04-06] MEDS: QUEtiapine 25 MG TABLET PO SCH (21:56)
[2020-04-06] MEDS: CHOLECALCIFEROL 1,000 UNIT TABLET PO SCH (21:56)
[2020-04-06] MEDS: MEMANTINE 5 MG TABLET PO SCH (21:56)
[2020-04-06] MEDS: ASCORBIC ACID 500 MG TABLET PO SCH (21:56)
[2020-04-06] MEDS: BUDESONIDE/FORMOTEROL 160-4.5 INHALER 6 GM INH SCH (21:57)
[2020-04-07 05:03] LABS: Basophils # 0.1 10*3/uL (0.0-0.2); Basophils % 0.6 % (0.0-0.8); Eosinophils # 0.2 10*3/uL (0.0-0.87); Eosinophils % 1.8 % (0.00-10.9); Hemoglobin 12.3 GM/DL (14.0-18.0); Immature Granulocytes % 1.4 %; Immature Granulocytes Absolute 0.12 #; Lymphocytes # 0.7 10*3/uL (1.4-4.0); Lymphocytes % 8.9 % (21.2-54.2); Mean Corpuscular HGB Conc 31.5 GM/DL (32-36); Mean Corpuscular Volume 87.8 FL (87-102); Mean Platelet Volume 9.3 FL (9.6-12.0); Monocytes % 6.6 % (1.7-12.7); Neutrophils % 80.7 % (38.7-73.9); Platelet Count 251 T/CUMM (130-400); Red Blood Count 4.44 MC/CUMM (3.8-5.5); White Blood Count 8.3 T/CUMM (4-12)
[2020-04-07 05:28] LABS: Calcium 8.2 MG/DL (8.5-10.1)
[2020-04-07] MEDS: ASCORBIC ACID 500 MG TABLET PO SCH ×2 (10:36→20:12)
[2020-04-07] MEDS: CETIRIZINE 10 MG TABLET PO SCH (10:36)
[2020-04-07] MEDS: ursodioL 300 MG CAPSULE PO SCH ×2 (10:36→20:12)
[2020-04-07] MEDS: METOPROLOL SUCCINATE XL 25 MG TABLET PO SCH (10:37)
[2020-04-07] MEDS: allopurinoL 100 MG TABLET PO SCH (10:37)
[2020-04-07] MEDS: AMIODARONE 200 MG TABLET PO SCH ×2 (10:37→20:12)
[2020-04-07] MEDS: ASPIRIN EC 81 MG TABLET PO SCH (10:37)
[2020-04-07] MEDS: THEOPHYLLINE ER 300 MG TABLET PO SCH ×2 (10:37→17:01)
[2020-04-07] MEDS: ALBUTEROL 0.4 MG/ML 30 ML/BOTTLE PO SCH (10:38)
[2020-04-07] MEDS: BUDESONIDE/FORMOTEROL 160-4.5 INHALER 6 GM INH SCH ×2 (10:38→20:11)
[2020-04-07] MEDS: MEMANTINE 5 MG TABLET PO SCH ×2 (10:38→20:56)
[2020-04-07] MEDS: CHOLECALCIFEROL 1,000 UNIT TABLET PO SCH ×2 (17:01→20:12)
[2020-04-07] MEDS: ENOXAPARIN 80 MG/0.8 ML SYRINGE SUBCUT SCH (17:01)
[2020-04-07] MEDS: DEXTROSE 5% NACL 0.45% 1,000 ML IV SCH (18:14)
[2020-04-07 18:22] LABS: Apearance,Urine CLEAR (Clear); Bilirubin,Urine Negative (Negative); Blood, Urine Negative (Negative); Glucose,Urine (UA) Negative (Negative); Ketones,Urine Negative (Negative); Nitrite,Urine Negative (Negative); Protein,Urine Negative; RBC,Urine 3 /HPF (0-4); Urine Color Yellow (Yellow); Urine Specific Gravity 1.006 (1.001-1.035); Urine Urobilinogen < 2.0 EU/DL (0.2-1.0); WBC,Urine 3 /HPF (0-6)
[2020-04-07] MEDS: QUEtiapine 25 MG TABLET PO SCH (20:12)
[2020-04-07] MEDS: ONDANSETRON 4 MG/2 ML VIAL IV PRN (20:17)
[2020-04-07] MEDS: PANTOPRAZOLE 40 MG VIAL IV SCH (22:59)
[2020-04-07 23:02] LABS: Hematocrit 37.8 VOL% (42.0-52.0); Hemoglobin 12.1 GM/DL (14.0-18.0)
[2020-04-08] MEDS: ENOXAPARIN 80 MG/0.8 ML SYRINGE SUBCUT SCH ×3 (01:34→23:23)
[2020-04-08 02:40] LABS: Hematocrit 36.2 VOL% (42.0-52.0); Hemoglobin 11.5 GM/DL (14.0-18.0)
[2020-04-08 05:54] LABS: Basophils # 0.1 10*3/uL (0.0-0.2); Basophils % 0.8 % (0.0-0.8); Eosinophils # 0.2 10*3/uL (0.0-0.87); Eosinophils % 1.6 % (0.00-10.9); Hematocrit 35.5 VOL% (42.0-52.0); Hemoglobin 11.3 GM/DL (14.0-18.0); Immature Granulocytes % 1.5 %; Immature Granulocytes Absolute 0.15 #; Lymphocytes % 9.6 % (21.2-54.2); Mean Corpuscular HGB Conc 31.8 GM/DL (32-36); Mean Corpuscular Volume 89.2 FL (87-102); Mean Platelet Volume 9.6 FL (9.6-12.0); Monocytes % 6.5 % (1.7-12.7); Platelet Count 266 T/CUMM (130-400); Red Blood Count 3.98 MC/CUMM (3.8-5.5); Red Cell Distribution Width 16.9 % (9.3-17.3); White Blood Count 9.9 T/CUMM (4-12)
[2020-04-08 06:09] LABS: Calcium 8.3 MG/DL (8.5-10.1); Osmolality,Calculated 270.8 MOS/KG (273-304)
[2020-04-08 06:10] LABS: Osmolality,Calculated 272.7 MOS/KG (273-304)
[2020-04-08 07:31] LABS: Hematocrit 36.1 VOL% (42.0-52.0); Hemoglobin 11.5 GM/DL (14.0-18.0)
[2020-04-08] MEDS ORDERED: MAGNESIUM SULF RIDER 2 GM in PREMIX 1 EACH IV ONE (07:51)
[2020-04-08] MEDS ORDERED: predniSONE 10 MG TABLET PO SCH (09:00)
[2020-04-08] MEDS: DEXTROSE 5% NACL 0.45% 1,000 ML IV SCH (09:06)
[2020-04-08] MEDS: PANTOPRAZOLE 40 MG VIAL IV SCH ×2 (09:06→21:03)
[2020-04-08] MEDS: BUDESONIDE/FORMOTEROL 160-4.5 INHALER 6 GM INH SCH ×2 (09:06→21:03)
[2020-04-08] MEDS: THEOPHYLLINE ER 300 MG TABLET PO SCH ×2 (09:07→16:35)
[2020-04-08] MEDS: ASPIRIN EC 81 MG TABLET PO SCH (09:08)
[2020-04-08] MEDS: CETIRIZINE 10 MG TABLET PO SCH (09:08)
[2020-04-08] MEDS: MEMANTINE 5 MG TABLET PO SCH ×2 (09:08→21:03)
[2020-04-08] MEDS: CHOLECALCIFEROL 1,000 UNIT TABLET PO SCH ×2 (09:08→21:03)
[2020-04-08] MEDS: allopurinoL 100 MG TABLET PO SCH (09:08)
[2020-04-08] MEDS: ASCORBIC ACID 500 MG TABLET PO SCH ×2 (09:08→21:03)
[2020-04-08] MEDS: ursodioL 300 MG CAPSULE PO SCH ×2 (09:08→21:03)
[2020-04-08] MEDS: AMIODARONE 200 MG TABLET PO SCH ×2 (09:09→21:03)
[2020-04-08] MEDS: METOPROLOL SUCCINATE XL 25 MG TABLET PO SCH (09:09)
[2020-04-08] MEDS: ALBUTEROL 0.4 MG/ML 30 ML/BOTTLE PO SCH (09:11)
[2020-04-08] MEDS ORDERED: POTASSIUM CHLORIDE 20 MEQ TABLET PO ONE ×2 (10:17→10:34)
[2020-04-08] MEDS: ONDANSETRON 4 MG/2 ML VIAL IV PRN (13:27)
[2020-04-08] MEDS: QUEtiapine 25 MG TABLET PO SCH (21:03)
[2020-04-09 06:11] LABS: Basophils % 0.5 % (0.0-0.8); Eosinophils % 0.4 % (0.00-10.9); Hematocrit 33.6 VOL% (42.0-52.0); Hemoglobin 10.7 GM/DL (14.0-18.0); Immature Granulocytes % 1.9 %; Immature Granulocytes Absolute 0.14 #; Lymphocytes # 0.9 10*3/uL (1.4-4.0); Lymphocytes % 12.4 % (21.2-54.2); Mean Corpuscular HGB Conc 31.8 GM/DL (32-36); Mean Platelet Volume 9.9 FL (9.6-12.0); Monocytes % 5.9 % (1.7-12.7); Neutrophils % 78.9 % (38.7-73.9); Platelet Count 233 T/CUMM (130-400); Red Blood Count 3.82 MC/CUMM (3.8-5.5); Red Cell Distribution Width 16.9 % (9.3-17.3); White Blood Count 7.3 T/CUMM (4-12)
[2020-04-09 06:31] LABS: Osmolality,Calculated 274.5 MOS/KG (273-304)
[2020-04-09 06:31] LABS: Calcium 8.4 MG/DL (8.5-10.1); Osmolality,Calculated 272.7 MOS/KG (273-304)
[2020-04-09] MEDS: THEOPHYLLINE ER 300 MG TABLET PO SCH (10:06)
[2020-04-09] MEDS: ASPIRIN EC 81 MG TABLET PO SCH (10:06)
[2020-04-09] MEDS: AMIODARONE 200 MG TABLET PO SCH (10:06)
[2020-04-09] MEDS: METOPROLOL SUCCINATE XL 25 MG TABLET PO SCH (10:07)
[2020-04-09] MEDS: ursodioL 300 MG CAPSULE PO SCH (10:07)
[2020-04-09] MEDS: allopurinoL 100 MG TABLET PO SCH (10:07)
[2020-04-09] MEDS: CETIRIZINE 10 MG TABLET PO SCH (10:07)
[2020-04-09] MEDS: CHOLECALCIFEROL 1,000 UNIT TABLET PO SCH (10:07)
[2020-04-09] MEDS: ASCORBIC ACID 500 MG TABLET PO SCH (10:07)
[2020-04-09] MEDS: MEMANTINE 5 MG TABLET PO SCH (10:07)
[2020-04-09] MEDS: PANTOPRAZOLE 40 MG VIAL IV SCH (10:08)
[2020-04-09] MEDS: ALBUTEROL 0.4 MG/ML 30 ML/BOTTLE PO SCH (10:13)
[2020-04-09] MEDS: BUDESONIDE/FORMOTEROL 160-4.5 INHALER 6 GM INH SCH (10:13)
[2020-04-09 12:20] VITALS: BP 100/63
== END 2020-04-09 12:26 | disposition home health service (06) | DRG 392 ==
LOC: EDUNIT# → EDBD → N.ED 09:09 → SUATTDRO 09:37 → INTOOBSV 09:37 → N.EDINP 09:37 → N.3E 15:38
PROVIDERS: ADMIT Family Medicine; ATTEND Hospitalist

== ENCOUNTER 2020-04-12 15:58 | Observation (INO) ==
[2020-04-12] MEDS ORDERED: PANTOPRAZOLE INJ 80 MG in SODIUM CHLORIDE 0.9% 100 ML IV STA (16:06)
[2020-04-12] MEDS ORDERED: ONDANSETRON 4 MG/2 ML VIAL IV STA (16:06)
[2020-04-12] MEDS ORDERED: DILTIAZEM 50 MG/10 ML VIAL IV STA ×2 (16:34→19:12)
[2020-04-12] MEDS ORDERED: PANTOPRAZOLE 40 MG VIAL IV ONE (17:22)
[2020-04-12 17:37] LABS: Basophils % 0.3 % (0.0-0.8); Eosinophils % 0.1 % (0.00-10.9); Hematocrit 40.6 VOL% (42.0-52.0); Immature Granulocytes % 1.2 %; Immature Granulocytes Absolute 0.14 #; Lymphocytes # 0.6 10*3/uL (1.4-4.0); Lymphocytes % 4.9 % (21.2-54.2); Mean Corpuscular Volume 87.5 FL (87-102); Mean Platelet Volume 9.6 FL (9.6-12.0); Monocytes % 2.7 % (1.7-12.7); Neutrophils % 90.8 % (38.7-73.9); Platelet Count 236 T/CUMM (130-400); Red Blood Count 4.64 MC/CUMM (3.8-5.5); Red Cell Distribution Width 16.7 % (9.3-17.3); White Blood Count 11.9 T/CUMM (4-12)
[2020-04-12 17:47] LABS: INR 1.1; PT Patient Result 12.1 SECS (9.8-11.9)
[2020-04-12 18:02] LABS: Albumin 2.4 G/DL (3.4-5.0); Bilirubin,Total 0.9 MG/DL (0.2-1.0); Calcium 8.1 MG/DL (8.5-10.1); Osmolality,Calculated 277.4 MOS/KG (273-304); Total Protein 5.1 G/DL (6.4-8.3)
[2020-04-12 18:14] LABS: Lymphocytes 3 % (20-55); Platelet Estimate Normal; Segmented Neutrophils 95 % (50-85); Total Cells Counted 100
[2020-04-12] MEDS ORDERED: SODIUM CHLORIDE 0.9% 1,000 ML IV STA (19:11)
[2020-04-12] MEDS ORDERED: ALBUTEROL/IPRATROPIUM 3 ML NEB RESP TX PRN (19:13)
[2020-04-12] MEDS ORDERED: MORPHINE 4 MG/1 ML VIAL IV PRN (19:13)
[2020-04-12] MEDS ORDERED: GLUCAGON 1 MG VIAL IM PRN (19:13)
[2020-04-12] MEDS ORDERED: DEXTROSE 50% 25 GM/50 ML VIAL IV PRN (19:13)
[2020-04-12] MEDS ORDERED: ONDANSETRON 4 MG/2 ML VIAL IV PRN (19:13)
[2020-04-12] MEDS ORDERED: PANTOPRAZOLE INJ 200 MG in SODIUM CHLORIDE 0.9% 250 ML IV SCH (19:30)
[2020-04-12] MEDS ORDERED: PROMETHAZINE INJ 25 MG in SODIUM CHLORIDE 0.9% 50 ML IV STA (19:31)
[2020-04-12] MEDS ORDERED: PROMETHAZINE 25 MG/1 ML VIAL ONE (19:33)
[2020-04-12] MEDS: DEXTROSE 5% NACL 0.45% 1,000 ML IV SCH (21:55)
[2020-04-12 22:23] LABS: Hematocrit 40.5 VOL% (42.0-52.0)
[2020-04-12] MEDS: PANTOPRAZOLE INJ 200 MG in SODIUM CHLORIDE 0.9% 250 ML IV SCH (22:33)
[2020-04-13 01:24] LABS: Hematocrit 37.1 VOL% (42.0-52.0); Hemoglobin 11.8 GM/DL (14.0-18.0)
[2020-04-13 05:42] LABS: Basophils % 0.4 % (0.0-0.8); Eosinophils % 0.1 % (0.00-10.9); Hematocrit 37.4 VOL% (42.0-52.0); Immature Granulocytes % 1.6 %; Immature Granulocytes Absolute 0.15 #; Lymphocytes % 10.8 % (21.2-54.2); Mean Corpuscular HGB Conc 32.1 GM/DL (32-36); Mean Platelet Volume 9.5 FL (9.6-12.0); Monocytes % 4.9 % (1.7-12.7); Neutrophils % 82.2 % (38.7-73.9); Platelet Count 219 T/CUMM (130-400); Red Blood Count 4.25 MC/CUMM (3.8-5.5); Red Cell Distribution Width 16.5 % (9.3-17.3); White Blood Count 9.2 T/CUMM (4-12)
[2020-04-13 05:49] LABS: Calcium 8.1 MG/DL (8.5-10.1); Osmolality,Calculated 278.4 MOS/KG (273-304)
[2020-04-13] MEDS: DEXTROSE 5% NACL 0.45% 1,000 ML IV SCH ×4 (07:05→20:30)
[2020-04-13 08:37] LABS: Hematocrit 36.7 VOL% (42.0-52.0); Hemoglobin 11.7 GM/DL (14.0-18.0)
[2020-04-13] MEDS ORDERED: PANTOPRAZOLE 40 MG TABLET PO SCH (09:00)
[2020-04-13] MEDS ORDERED: LIDOCAINE 2% 5 ML VIAL ONE (09:00)
[2020-04-13] MEDS ORDERED: LACTATED RINGERS 1,000 ML IV SCH (09:00)
[2020-04-13] MEDS ORDERED: propofoL 200 MG/20 ML VIAL IV ONE (09:00)
[2020-04-13 13:34] LABS: Hematocrit 37.7 VOL% (42.0-52.0); Hemoglobin 11.9 GM/DL (14.0-18.0)
[2020-04-13] MEDS: PANTOPRAZOLE INJ 200 MG in SODIUM CHLORIDE 0.9% 250 ML IV SCH ×2 (16:24→23:34)
[2020-04-13] MEDS: THEOPHYLLINE ER 300 MG TABLET PO SCH (18:08)
[2020-04-13] MEDS: ALBUTEROL/IPRATROPIUM 3 ML NEB RESP TX SCH (19:55)
[2020-04-13] MEDS: AMIODARONE 200 MG TABLET PO SCH (20:29)
[2020-04-13] MEDS: BUDESONIDE/FORMOTEROL 160-4.5 INHALER 6 GM INH SCH (20:30)
[2020-04-13] MEDS: MEMANTINE 5 MG TABLET PO SCH (20:30)
[2020-04-13] MEDS ORDERED: QUEtiapine 25 MG TABLET PO SCH (21:00)
[2020-04-14] MEDS: ALBUTEROL/IPRATROPIUM 3 ML NEB RESP TX SCH (07:05)
[2020-04-14 08:34] LABS: Basophils # 0.1 10*3/uL (0.0-0.2); Basophils % 0.5 % (0.0-0.8); Eosinophils # 0.1 10*3/uL (0.0-0.87); Hematocrit 38.5 VOL% (42.0-52.0); Hemoglobin 12.3 GM/DL (14.0-18.0); Immature Granulocytes % 1.3 %; Immature Granulocytes Absolute 0.12 #; Lymphocytes # 1.2 10*3/uL (1.4-4.0); Lymphocytes % 12.9 % (21.2-54.2); Mean Corpuscular HGB Conc 31.9 GM/DL (32-36); Mean Corpuscular Volume 87.7 FL (87-102); Mean Platelet Volume 9.2 FL (9.6-12.0); Monocytes % 4.9 % (1.7-12.7); Neutrophils % 79.4 % (38.7-73.9); Platelet Count 180 T/CUMM (130-400); Red Blood Count 4.39 MC/CUMM (3.8-5.5); Red Cell Distribution Width 16.8 % (9.3-17.3); White Blood Count 9.6 T/CUMM (4-12)
[2020-04-14 08:55] LABS: Calcium 7.9 MG/DL (8.5-10.1); Osmolality,Calculated 278.3 MOS/KG (273-304)
[2020-04-14] MEDS ORDERED: predniSONE 10 MG TABLET PO SCH (09:00)
[2020-04-14] MEDS ORDERED: CETIRIZINE 10 MG TABLET PO SCH (09:00)
[2020-04-14] MEDS: MEMANTINE 5 MG TABLET PO SCH (09:51)
[2020-04-14] MEDS: AMIODARONE 200 MG TABLET PO SCH (09:52)
[2020-04-14] MEDS: THEOPHYLLINE ER 300 MG TABLET PO SCH (09:52)
[2020-04-14] MEDS: DEXTROSE 5% NACL 0.45% 1,000 ML IV SCH (09:53)
[2020-04-14] MEDS: BUDESONIDE/FORMOTEROL 160-4.5 INHALER 6 GM INH SCH (09:54)
[2020-04-14] MEDS ORDERED: POTASSIUM CHLORIDE RIDER 10 MEQ in PREMIX 1 EACH IV PRN (11:11)
[2020-04-14 11:19] VITALS: BP 118/63
[2020-04-14] MEDS ORDERED: POTASSIUM CHLORIDE 20 MEQ TABLET PO ONE ×2 (13:03→14:45)
== END 2020-04-14 14:45 | disposition home or self-care (01) ==
LOC: EDBD → N.EDINP 15:58 → N.ED 15:58 → N.3E 20:55
PROVIDERS: ADMIT Hospitalist; ATTEND Hospitalist

== ENCOUNTER 2020-04-20 13:47 | Inpatient (IN) ==
[2020-04-20] MEDS ORDERED: OXYMETAZOLINE 0.05% NASAL SPRAY 15 ML BOTTLE ONE (14:05)
[2020-04-20 14:24] LABS: Basophils # 0.1 10*3/uL (0.0-0.2); Basophils % 0.5 % (0.0-0.8); Eosinophils # 0.1 10*3/uL (0.0-0.87); Eosinophils % 0.8 % (0.00-10.9); Hematocrit 44.7 VOL% (42.0-52.0); Hemoglobin 14.2 GM/DL (14.0-18.0); Immature Granulocytes % 1.8 %; Immature Granulocytes Absolute 0.22 #; Lymphocytes # 1.4 10*3/uL (1.4-4.0); Lymphocytes % 11.5 % (21.2-54.2); Mean Corpuscular HGB Conc 31.8 GM/DL (32-36); Mean Platelet Volume 9.5 FL (9.6-12.0); Monocytes % 3.6 % (1.7-12.7); NRBC # 0.04 10*3/uL; Neutrophils % 81.8 % (38.7-73.9); Platelet Count 316 T/CUMM (130-400); Red Blood Count 5.14 MC/CUMM (3.8-5.5); Red Cell Distribution Width 15.9 % (9.3-17.3)
[2020-04-20] MEDS ORDERED: SODIUM CHLORIDE 0.9% 1,000 ML IV STA ×2 (14:45→14:48)
[2020-04-20 14:47] LABS: INR 1.1; PT Patient Result 11.7 SECS (9.8-11.9); Partial Thromboplastin Time 30.8 SECS (23.9-33.8)
[2020-04-20 15:07] LABS: Albumin 2.9 G/DL (3.4-5.0); Calcium 9.2 MG/DL (8.5-10.1); Osmolality,Calculated 266.2 MOS/KG (273-304); Total Protein 6.5 G/DL (6.4-8.3)
[2020-04-20] MEDS ORDERED: GLUCAGON 1 MG VIAL IM PRN (15:31)
[2020-04-20] MEDS ORDERED: LACTULOSE 20 GM/30 ML UDCUP PO PRN (15:31)
[2020-04-20] MEDS ORDERED: DEXTROSE 50% 25 GM/50 ML VIAL IV PRN (15:31)
[2020-04-20] MEDS ORDERED: OXYMETAZOLINE 0.05% NASAL SPRAY 15 ML BOTTLE BOTH NARES PRN (15:57)
[2020-04-20 16:30] LABS: Free T4 (Free Thyroxine) 1.42 NG/DL (0.76-1.46)
[2020-04-20] MEDS: ONDANSETRON 4 MG/2 ML VIAL IV PRN (16:50)
[2020-04-20] MEDS ORDERED: THEOPHYLLINE ER 300 MG TABLET PO SCH (17:00)
[2020-04-20] MEDS: DEXTROSE 5% NACL 0.9% 1,000 ML IV SCH (17:17)
[2020-04-20] MEDS: CALCIUM (CITRATE) 200 MG TABLET PO SCH ×2 (17:34→21:13)
[2020-04-20] MEDS: ALBUTEROL/IPRATROPIUM 3 ML NEB RESP TX SCH (19:35)
[2020-04-20] MEDS: LACTULOSE 20 GM/30 ML UDCUP PO SCH (21:13)
[2020-04-20] MEDS: MEMANTINE 5 MG TABLET PO SCH (21:13)
[2020-04-20] MEDS: BUDESONIDE/FORMOTEROL 160-4.5 INHALER 6 GM INH SCH (21:13)
[2020-04-20] MEDS: PANTOPRAZOLE 40 MG TABLET PO SCH (21:14)
[2020-04-20] MEDS: ursodioL 300 MG CAPSULE PO SCH (21:14)
[2020-04-20] MEDS: AMIODARONE 200 MG TABLET PO SCH (21:16)
[2020-04-21] MEDS: ALBUTEROL/IPRATROPIUM 3 ML NEB RESP TX SCH ×4 (00:40→19:43)
[2020-04-21] MEDS: DEXTROSE 5% NACL 0.9% 1,000 ML IV SCH (06:33)
[2020-04-21 06:54] LABS: Bilirubin,Urine Negative (Negative); Blood, Urine Negative (Negative); Calcium Oxalate Crystals,Urine Moderate /HPF (Few); Glucose,Urine (UA) Negative (Negative); Ketones,Urine 20 mg/dL (Negative); Mucus,Urine Moderate /LPF (Occasional); Nitrite,Urine Negative (Negative); Protein,Urine Negative; RBC,Urine 2 /HPF (0-4); Squamous Epithelial Cell,Urine Occasional /HPF (0-10); Urine Appearance CLEAR (Clear); Urine Color Yellow (Yellow); WBC,Urine 4 /HPF (0-6)
[2020-04-21 07:03] LABS: Basophils % 0.4 % (0.0-0.8); Eosinophils # 0.2 10*3/uL (0.0-0.87); Eosinophils % 2.2 % (0.00-10.9); Hematocrit 34.4 VOL% (42.0-52.0); Hemoglobin 10.9 GM/DL (14.0-18.0); Immature Granulocytes % 2.2 %; Immature Granulocytes Absolute 0.15 #; Lymphocytes % 15.1 % (21.2-54.2); Mean Corpuscular HGB Conc 31.7 GM/DL (32-36); Mean Corpuscular Volume 87.8 FL (87-102); Mean Platelet Volume 9.2 FL (9.6-12.0); Monocytes % 5.2 % (1.7-12.7); Neutrophils % 74.9 % (38.7-73.9); Platelet Count 210 T/CUMM (130-400); Red Blood Count 3.92 MC/CUMM (3.8-5.5); Red Cell Distribution Width 15.9 % (9.3-17.3); White Blood Count 6.9 T/CUMM (4-12)
[2020-04-21 07:49] LABS: Bilirubin,Total 0.39 MG/DL (0.2-1.0); Calcium 8.1 MG/DL (8.5-10.1); Osmolality,Calculated 271.8 MOS/KG (273-304); Total Protein 4.7 G/DL (6.4-8.3)
[2020-04-21] MEDS: ursodioL 300 MG CAPSULE PO SCH ×2 (08:56→21:10)
[2020-04-21] MEDS: LACTULOSE 20 GM/30 ML UDCUP PO SCH ×2 (08:56→14:10)
[2020-04-21] MEDS: MEMANTINE 5 MG TABLET PO SCH ×2 (08:56→21:09)
[2020-04-21] MEDS: BUDESONIDE/FORMOTEROL 160-4.5 INHALER 6 GM INH SCH ×2 (08:56→21:16)
[2020-04-21] MEDS: CALCIUM (CITRATE) 200 MG TABLET PO SCH ×4 (08:57→21:09)
[2020-04-21] MEDS: allopurinoL 100 MG TABLET PO SCH (08:57)
[2020-04-21] MEDS: AMIODARONE 200 MG TABLET PO SCH ×2 (08:57→21:10)
[2020-04-21] MEDS: ASPIRIN EC 81 MG TABLET PO SCH (08:57)
[2020-04-21] MEDS: METOPROLOL SUCCINATE XL 25 MG TABLET PO SCH (08:57)
[2020-04-21] MEDS: ASCORBIC ACID 500 MG TABLET PO SCH (08:58)
[2020-04-21] MEDS: PANTOPRAZOLE 40 MG TABLET PO SCH ×2 (08:58→21:10)
[2020-04-21] MEDS: CHOLECALCIFEROL 1,000 UNIT TABLET PO SCH (08:58)
[2020-04-21] MEDS ORDERED: PANTOPRAZOLE 40 MG TABLET PO SCH (09:00)
[2020-04-21] MEDS ORDERED: APIXABAN 5 MG TABLET PO SCH (09:00)
[2020-04-21] MEDS ORDERED: POTASSIUM CHLORIDE 20 MEQ TABLET PO ONE (10:00)
[2020-04-21] MEDS ORDERED: MAGNESIUM SULF RIDER 4 GM in PREMIX 1 EACH IV ONE (10:00)
[2020-04-21] MEDS: ONDANSETRON 4 MG/2 ML VIAL IV PRN ×2 (11:29→16:40)
[2020-04-21 17:46] LABS: Hematocrit 36.4 VOL% (42.0-52.0); Hemoglobin 11.6 GM/DL (14.0-18.0)
[2020-04-22] MEDS: ALBUTEROL/IPRATROPIUM 3 ML NEB RESP TX SCH ×4 (00:34→20:37)
[2020-04-22 05:45] LABS: Basophils # 0.1 10*3/uL (0.0-0.2); Basophils % 0.7 % (0.0-0.8); Eosinophils # 0.2 10*3/uL (0.0-0.87); Eosinophils % 2.5 % (0.00-10.9); Hematocrit 36.3 VOL% (42.0-52.0); Hemoglobin 11.6 GM/DL (14.0-18.0); Immature Granulocytes % 1.2 %; Immature Granulocytes Absolute 0.09 #; Lymphocytes # 0.9 10*3/uL (1.4-4.0); Lymphocytes % 12.1 % (21.2-54.2); Mean Corpuscular Volume 87.5 FL (87-102); Mean Platelet Volume 9.2 FL (9.6-12.0); Monocytes % 4.5 % (1.7-12.7); Platelet Count 215 T/CUMM (130-400); Red Blood Count 4.15 MC/CUMM (3.8-5.5); Red Cell Distribution Width 16.3 % (9.3-17.3); White Blood Count 7.3 T/CUMM (4-12)
[2020-04-22 06:12] LABS: Calcium 8.1 MG/DL (8.5-10.1); Osmolality,Calculated 273.5 MOS/KG (273-304)
[2020-04-22] MEDS: LEVOTHYROXINE 25 MCG TABLET PO SCH (06:54)
[2020-04-22] MEDS: ursodioL 300 MG CAPSULE PO SCH (09:25)
[2020-04-22] MEDS ORDERED: COSYNTROPIN 0.25 MG VIAL IV ONE (10:00)
[2020-04-22] MEDS: ONDANSETRON 4 MG/2 ML VIAL IV PRN (10:04)
[2020-04-22] MEDS: allopurinoL 100 MG TABLET PO SCH (11:22)
[2020-04-22] MEDS: ASPIRIN EC 81 MG TABLET PO SCH (11:22)
[2020-04-22] MEDS: predniSONE 10 MG TABLET PO SCH (11:22)
[2020-04-22] MEDS: AMIODARONE 200 MG TABLET PO SCH ×2 (11:22→21:59)
[2020-04-22] MEDS: MEMANTINE 5 MG TABLET PO SCH ×2 (11:22→21:59)
[2020-04-22] MEDS: PANTOPRAZOLE 40 MG TABLET PO SCH ×2 (11:22→21:59)
[2020-04-22] MEDS: METOPROLOL SUCCINATE XL 25 MG TABLET PO SCH (11:23)
[2020-04-22] MEDS: BUDESONIDE/FORMOTEROL 160-4.5 INHALER 6 GM INH SCH ×2 (11:23→22:02)
[2020-04-22] MEDS: CHOLECALCIFEROL 1,000 UNIT TABLET PO SCH (11:25)
[2020-04-22] MEDS: DEXTROSE 5% NACL 0.9% 1,000 ML IV SCH ×2 (11:25→21:44)
[2020-04-22] MEDS: CALCIUM (CITRATE) 200 MG TABLET PO SCH ×4 (11:25→21:59)
[2020-04-22] MEDS: ASCORBIC ACID 500 MG TABLET PO SCH (11:25)
[2020-04-22] MEDS: HEPARIN DRIP 25,000 UNITS/500 ML PREMIX IV SCH (11:40)
[2020-04-22] MEDS: MIRTAZAPINE 15 MG TABLET PO SCH (22:00)
[2020-04-23] MEDS: ALBUTEROL/IPRATROPIUM 3 ML NEB RESP TX SCH ×4 (00:16→19:30)
[2020-04-23 05:14] LABS: Basophils % 0.2 % (0.0-0.8); Hematocrit 36.9 VOL% (42.0-52.0); Hemoglobin 11.5 GM/DL (14.0-18.0); Immature Granulocytes % 1.1 %; Immature Granulocytes Absolute 0.17 #; Lymphocytes # 0.9 10*3/uL (1.4-4.0); Lymphocytes % 6.1 % (21.2-54.2); Mean Corpuscular HGB Conc 31.2 GM/DL (32-36); Mean Corpuscular Volume 89.1 FL (87-102); Mean Platelet Volume 9.8 FL (9.6-12.0); Monocytes % 3.4 % (1.7-12.7); NRBC # 0.02 10*3/uL; Neutrophils % 89.2 % (38.7-73.9); Platelet Count 224 T/CUMM (130-400); Red Blood Count 4.14 MC/CUMM (3.8-5.5); Red Cell Distribution Width 16.4 % (9.3-17.3); White Blood Count 14.8 T/CUMM (4-12)
[2020-04-23 05:43] LABS: Bilirubin,Total 0.7 MG/DL (0.2-1.0); Calcium 8.4 MG/DL (8.5-10.1); Osmolality,Calculated 275.7 MOS/KG (273-304); Total Protein 4.8 G/DL (6.4-8.3)
[2020-04-23] MEDS: LEVOTHYROXINE 25 MCG TABLET PO SCH (06:03)
[2020-04-23] MEDS ORDERED: MAGNESIUM SULF RIDER 2 GM in PREMIX 1 EACH IV PRN (07:32)
[2020-04-23] MEDS ORDERED: MAGNESIUM SULF RIDER 4 GM in PREMIX 1 EACH IV PRN (07:32)
[2020-04-23] MEDS: CALCIUM (CITRATE) 200 MG TABLET PO SCH ×4 (09:15→21:26)
[2020-04-23] MEDS: ASPIRIN EC 81 MG TABLET PO SCH (09:15)
[2020-04-23] MEDS: allopurinoL 100 MG TABLET PO SCH (09:15)
[2020-04-23] MEDS: METOPROLOL SUCCINATE XL 25 MG TABLET PO SCH (09:15)
[2020-04-23] MEDS: ASCORBIC ACID 500 MG TABLET PO SCH (09:15)
[2020-04-23] MEDS: AMIODARONE 200 MG TABLET PO SCH ×2 (09:16→21:26)
[2020-04-23] MEDS: MEMANTINE 5 MG TABLET PO SCH ×2 (09:16→21:26)
[2020-04-23] MEDS: CHOLECALCIFEROL 1,000 UNIT TABLET PO SCH (09:16)
[2020-04-23] MEDS: PANTOPRAZOLE 40 MG TABLET PO SCH ×2 (09:16→21:27)
[2020-04-23] MEDS: BUDESONIDE/FORMOTEROL 160-4.5 INHALER 6 GM INH SCH ×2 (09:16→21:27)
[2020-04-23] MEDS: DEXTROSE 5% NACL 0.9% 1,000 ML IV SCH ×2 (10:22→11:21)
[2020-04-23] MEDS: HEPARIN DRIP 25,000 UNITS/500 ML PREMIX IV SCH (11:21)
[2020-04-23] MEDS: MIRTAZAPINE 15 MG TABLET PO SCH (21:26)
[2020-04-24] MEDS: ALBUTEROL/IPRATROPIUM 3 ML NEB RESP TX SCH ×4 (01:00→19:49)
[2020-04-24] MEDS: LEVOTHYROXINE 25 MCG TABLET PO SCH (06:31)
[2020-04-24] MEDS: DEXTROSE 5% NACL 0.9% 1,000 ML IV SCH (08:28)
[2020-04-24] MEDS: CALCIUM (CITRATE) 200 MG TABLET PO SCH ×5 (08:29→22:56)
[2020-04-24] MEDS: ASPIRIN EC 81 MG TABLET PO SCH ×2 (08:29→10:18)
[2020-04-24] MEDS: AMIODARONE 200 MG TABLET PO SCH ×3 (08:29→22:56)
[2020-04-24] MEDS: BUDESONIDE/FORMOTEROL 160-4.5 INHALER 6 GM INH SCH ×2 (08:29→22:55)
[2020-04-24] MEDS: ASCORBIC ACID 500 MG TABLET PO SCH ×2 (08:30→10:18)
[2020-04-24] MEDS: predniSONE 10 MG TABLET PO SCH ×2 (08:30→10:19)
[2020-04-24] MEDS: MEMANTINE 5 MG TABLET PO SCH ×3 (08:30→22:56)
[2020-04-24] MEDS: CHOLECALCIFEROL 1,000 UNIT TABLET PO SCH ×2 (08:30→10:18)
[2020-04-24] MEDS: PANTOPRAZOLE 40 MG TABLET PO SCH ×3 (08:30→22:56)
[2020-04-24] MEDS: METOPROLOL SUCCINATE XL 25 MG TABLET PO SCH ×2 (08:30→10:19)
[2020-04-24] MEDS: allopurinoL 100 MG TABLET PO SCH ×2 (08:30→10:18)
[2020-04-24] MEDS: HEPARIN DRIP 25,000 UNITS/500 ML PREMIX IV SCH (10:19)
[2020-04-24] MEDS: MIRTAZAPINE 15 MG TABLET PO SCH (22:57)
[2020-04-25] MEDS: ALBUTEROL/IPRATROPIUM 3 ML NEB RESP TX SCH ×3 (01:03→19:50)
[2020-04-25] MEDS: DEXTROSE 5% NACL 0.9% 1,000 ML IV SCH (03:23)
[2020-04-25] MEDS: LEVOTHYROXINE 25 MCG TABLET PO SCH (06:03)
[2020-04-25 06:25] LABS: Basophils % 0.3 % (0.0-0.8); Eosinophils # 0.1 10*3/uL (0.0-0.87); Eosinophils % 0.8 % (0.00-10.9); Hematocrit 34.4 VOL% (42.0-52.0); Hemoglobin 10.9 GM/DL (14.0-18.0); Immature Granulocytes % 0.8 %; Immature Granulocytes Absolute 0.09 #; Lymphocytes # 1.2 10*3/uL (1.4-4.0); Lymphocytes % 11.3 % (21.2-54.2); Mean Corpuscular HGB Conc 31.7 GM/DL (32-36); Mean Corpuscular Volume 88.9 FL (87-102); Mean Platelet Volume 9.4 FL (9.6-12.0); Monocytes % 4.8 % (1.7-12.7); Platelet Count 223 T/CUMM (130-400); Red Blood Count 3.87 MC/CUMM (3.8-5.5); Red Cell Distribution Width 16.9 % (9.3-17.3); White Blood Count 10.7 T/CUMM (4-12)
[2020-04-25 06:40] LABS: INR 1.1; PT Patient Result 11.5 SECS (9.8-11.9)
[2020-04-25 06:58] LABS: Calcium 8.4 MG/DL (8.5-10.1); Osmolality,Calculated 279.3 MOS/KG (273-304)
[2020-04-25] MEDS ORDERED: LACTATED RINGERS 1,000 ML IV SCH (08:00)
[2020-04-25] MEDS: LEVOTHYROXINE 50 MCG TABLET PO SCH (08:20)
[2020-04-25] MEDS ORDERED: PHENYLEPHRINE 10 MG/1 ML VIAL IV ONE (09:00)
[2020-04-25] MEDS ORDERED: ETOMIDATE 20 MG/10 ML VIAL IV ONE (09:00)
[2020-04-25] MEDS ORDERED: LIDOCAINE 2% 5 ML VIAL ONE (09:00)
[2020-04-25] MEDS ORDERED: propofoL 200 MG/20 ML VIAL IV ONE (09:00)
[2020-04-25] MEDS: BUDESONIDE/FORMOTEROL 160-4.5 INHALER 6 GM INH SCH ×2 (09:50→22:04)
[2020-04-25] MEDS ORDERED: CLINDAMYCIN INJ 600 MG in PREMIX 1 EACH IV ONE (10:00)
[2020-04-25] MEDS ORDERED: ALBUTEROL/IPRATROPIUM 3 ML NEB RESP TX ONE (10:24)
[2020-04-25] MEDS: ASPIRIN EC 81 MG TABLET PO SCH (10:53)
[2020-04-25] MEDS: AMIODARONE 200 MG TABLET PO SCH ×2 (10:53→21:56)
[2020-04-25] MEDS: MEMANTINE 5 MG TABLET PO SCH ×2 (10:53→21:56)
[2020-04-25] MEDS: PANTOPRAZOLE 40 MG TABLET PO SCH ×2 (10:53→21:56)
[2020-04-25] MEDS: CALCIUM (CITRATE) 200 MG TABLET PO SCH ×4 (10:53→21:56)
[2020-04-25] MEDS: METOPROLOL SUCCINATE XL 25 MG TABLET PO SCH (10:54)
[2020-04-25] MEDS: ASCORBIC ACID 500 MG TABLET PO SCH (10:54)
[2020-04-25] MEDS: allopurinoL 100 MG TABLET PO SCH (10:55)
[2020-04-25] MEDS: CHOLECALCIFEROL 1,000 UNIT TABLET PO SCH (10:55)
[2020-04-25] MEDS ORDERED: POTASSIUM CHLORIDE 20 MEQ PACK PO ONE (13:12)
[2020-04-25] MEDS: CLOTRIMAZOLE 10 MG TROCHE PO SCH ×3 (14:16→22:05)
[2020-04-25] MEDS: MIRTAZAPINE 15 MG TABLET PO SCH (21:56)
[2020-04-26] MEDS: DEXTROSE 5% NACL 0.9% 1,000 ML IV SCH
[2020-04-26] MEDS: ALBUTEROL/IPRATROPIUM 3 ML NEB RESP TX SCH ×4 (00:15→14:57)
[2020-04-26 04:32] LABS: Prealbumin 5.8 MG/DL (20-40)
[2020-04-26] MEDS: CLOTRIMAZOLE 10 MG TROCHE PO SCH ×3 (05:37→15:01)
[2020-04-26] MEDS: LEVOTHYROXINE 50 MCG TABLET PO SCH (05:37)
[2020-04-26] MEDS ORDERED: traMADol 50 MG TABLET PO PRN (08:48)
[2020-04-26] MEDS: ASCORBIC ACID 500 MG TABLET PO SCH (09:55)
[2020-04-26] MEDS: CHOLECALCIFEROL 1,000 UNIT TABLET PO SCH (09:56)
[2020-04-26] MEDS: PANTOPRAZOLE 40 MG TABLET PO SCH (09:56)
[2020-04-26] MEDS: predniSONE 10 MG TABLET PO SCH (09:56)
[2020-04-26] MEDS: METOPROLOL SUCCINATE XL 25 MG TABLET PO SCH (09:56)
[2020-04-26] MEDS: CALCIUM (CITRATE) 200 MG TABLET PO SCH ×2 (09:56→15:00)
[2020-04-26] MEDS: AMIODARONE 200 MG TABLET PO SCH (09:56)
[2020-04-26] MEDS: ASPIRIN EC 81 MG TABLET PO SCH (09:56)
[2020-04-26] MEDS: allopurinoL 100 MG TABLET PO SCH (09:56)
[2020-04-26] MEDS: MEMANTINE 5 MG TABLET PO SCH (09:56)
[2020-04-26] MEDS: BUDESONIDE/FORMOTEROL 160-4.5 INHALER 6 GM INH SCH (11:18)
[2020-04-26] MEDS: ONDANSETRON 4 MG/2 ML VIAL IV PRN (13:41)
[2020-04-26 15:42] VITALS: BP 109/64
[2020-04-27] MEDS ORDERED: APIXABAN 5 MG TABLET PO SCH (09:00)
== END 2020-04-26 16:25 | disposition home health service (06) | DRG 381 ==
LOC: EDUNIT# → N.ED 13:47 → INTOOBSV 15:31 → SUATTDRO 15:31 → N.EDINP 15:31 → N.5E 16:24
PROVIDERS: ADMIT Internal Medicine; ATTEND Internal Medicine
PROC: EGDWPEG (ICD-10-PCS; 2020-04-25 10:35)